=== PATIENT | female | born 1965 | race Caucasian/White ===

== ENCOUNTER 2016-07-30 19:52 | Inpatient (IN) | payer OTHER ==
[~2016-07-30] VITALS: Ht 160 cm; Wt 48.0 kg
[2016-07-30 19:59] VITALS: BP 133/63; PULSE 99; RESP 15; TEMP 97.8; O2SAT 98
--- NOTE | 2016-07-30 21:25 | PD ---
HPI Chief Complaint: Altered Mental Status Time Seen by Provider: 21:10 Travel History International Travel<30 days: No Contact w/Intl Traveler<30days: No Traveled to known affect area: No History of Present Illness HPI This is a 51-year-old female who presents with her daughter for evaluation of altered mental status, fall. According to the daughter the patient fell twice 6 days ago. The patient reportedly tripped and face planted on the sidewalk. Later on in the day she slipped and struck the back of her head against the ground. Since then according to her daughter she has been altered, hallucinating dogs and people and animals and bugs that are not there. She has been saying things that don't make sense according to the daughter. The daughter came down from [place] when she found out about her symptoms per the patient currently lives alone. The daughter notes that she is a heavy drinker although the patient seems to be minimizing this. She has no significant past medical history. She does endorse some pain in both feet from the fall as well as mild facial pain, abdominal pain. Denies any headache, neck pain or back pain, shortness of breath. She denies any known significant past medical history although she does not see a primary care physician on a regular basis. She has no psychiatric history. No other complaints. [facility] Past Medical History Autoimmune Disease: Yes (SKIN LUPUS) Integumentary: Yes (SKIN LUPUS) Tetanus Vaccination: Unknown ?: Not Past Surgical History Section: Yes Social History Alcohol Use: Yes (DAILY) Tobacco Use: Yes (1PPD) Substance Use: No Allergies-Medications (Allergen,Severity, Reaction): Coded Allergies: Penicillin (Verified Allergy, Unknown, 07/31/16) Reported Meds & Prescriptions Reported Meds & Active Scripts Active No Active Prescriptions or Reported Medications Review of Systems Except as stated in HPI: all other systems reviewed are Neg Physical Exam Narrative GENERAL: Well-developed well-nourished female in no acute distress SKIN: Warm and dry. Patient has ecchymosis along the left side of her face, as well as mild ecchymosis to the upper chest wall. HEAD: Skin as noted above Normocephalic. EYES: Pupils equal and round. Mild scleral icterus, there is some left conjunctival injection. No hyphema or hypopyon. Extraocular muscles are intact. No injection or drainage. ENT: No nasal bleeding or discharge. Mucous membranes pink and moist. NECK: Trachea midline. No JVD. CARDIOVASCULAR: Regular rate and rhythm. No murmur appreciated. RESPIRATORY: No accessory muscle use. Clear to auscultation. Breath sounds equal bilaterally. GASTROINTESTINAL: Abdomen soft, mild epigastric tenderness, hepatosplenomegaly. No guarding. MUSCULOSKELETAL: No obvious deformities. Tender to palpation on the anterior aspect of both feet. No apparent range of motion limitation NEUROLOGICAL: Awake and alert. No obvious cranial nerve deficits. Motor grossly within normal limits. Normal speech. Data Data Last Documented VS Vital Signs Date Time Temp Pulse Resp B/P Pulse Ox O2 Delivery O2 Flow Rate FiO2 07/30/16 19:59 97.8 99 15 133/63 98 Room Air Orders Electrocardiogram (07/30/16 21:17) Ammonia (07/30/16 21:17) Complete Blood Count With Diff (07/30/16 21:17) Creatine Kinase (Cpk) (07/30/16 21:17) Prothrombin Time / Inr (Pt) (07/30/16 21:17) Act Partial Throm Time (Ptt) (07/30/16 21:17) Thyroid Stimulating Hormone (07/30/16 21:17) Urinalysis - C+S If Indicated (07/30/16 21:17) Chest, Single Ap (07/30/16 21:17) Ct Brain W/O Iv Contrast(Rout) (07/30/16 21:17) Ecg Monitoring (07/30/16 21:17) Iv Access Insert/Monitor (07/30/16 21:17) Oximetry (07/30/16 21:17) Sodium Chloride 0.9% Flush (Ns Flush) (07/30/16 21:30) Drug Screen, Random Urine (07/30/16 21:17) Alcohol (Ethanol) (07/30/16 21:17) Ct Cerv Spine W/O Contrast (07/30/16 ) Hepatic Functional Panel (07/30/16 21:17) Ct Abd/Pel W Iv Contrast(Rout) (07/30/16 21:17) Ct Facial Bones W/O Iv Cont (07/30/16 ) Foot, Complete ([id number]) (07/30/16 ) Foot, Complete ([id number]) (2/16/17 ) Basic Metabolic Panel (Bmp) (07/30/16 21:46) CKMB (07/30/16 21:46) CKMB% (07/30/16 21:46) Lactulose Liq (Lactulose Liq) (07/30/16 23:00) Sodium Chlor 0.9% 1000 Ml Inj (Ns 1000 M (07/30/16 23:00) Potassium Chlor 20 Meq Premix (Kcl 20 Me (07/30/16 23:00) Potassium Chloride (Kcl) (07/30/16 23:00) Thiamine Inj (Thiamine Inj) (07/30/16 23:00) Iohexol 350 Inj (Omnipaque 350 Inj) (07/30/16 23:11) Osmolality, Urine (07/30/16 23:47) Admit Order (Ed Use Only) (07/31/16 00:43) Labs Laboratory Tests Test 07/30/16 07/30/16 21:45 21:46 Ammonia 80 MCMOL/L Prothrombin Time 15.8 SEC Prothromb Time International 1.4 RATIO Ratio Activated Partial 34.8 SEC Thromboplast Time Sodium Level 122 MEQ/L Potassium Level 2.8 MEQ/L Chloride Level 85 MEQ/L Carbon Dioxide Level 24.5 MEQ/L Anion Gap 13 MEQ/L Blood Urea Nitrogen 9 MG/DL Creatinine 0.59 MG/DL Estimat Glomerular Filtration 107 ML/MIN Rate Random Glucose 98 MG/DL Calcium Level 8.1 MG/DL Total Bilirubin 3.8 MG/DL Direct Bilirubin 2.6 MG/DL Indirect Bilirubin 1.2 MG/DL Aspartate Amino Transf 79 U/L (AST/SGOT) Alanine Aminotransferase 35 U/L (ALT/SGPT) Alkaline Phosphatase 108 U/L Total Creatine Kinase 241 U/L Creatine Kinase MB 5.4 NG/ML Creatine Kinase MB % 2.2 % Total Protein 7.4 GM/DL Albumin 2.4 GM/DL Thyroid Stimulating Hormone 1.750 uIU/ML 3rd Gen Ethyl Alcohol Level LESS THAN 3 MG/DL White Blood Count 10.8 TH/MM3 Red Blood Count 2.90 MIL/MM3 Hemoglobin 9.5 GM/DL Hematocrit 27.2 % Mean Corpuscular Volume 94.0 FL Mean Corpuscular Hemoglobin 32.9 PG Mean Corpuscular Hemoglobin 35.0 % Concent Red Cell Distribution Width 17.7 % Platelet Count 124 TH/MM3 Mean Platelet Volume 9.0 FL Neutrophils (%) (Auto) % Lymphocytes (%) (Auto) % Monocytes (%) (Auto) % Eosinophils (%) (Auto) % Basophils (%) (Auto) % Neutrophils # (Auto) TH/MM3 Lymphocytes # (Auto) TH/MM3 Monocytes # (Auto) TH/MM3 Eosinophils # (Auto) TH/MM3 Basophils # (Auto) TH/MM3 CBC Comment AUTO DIFF Differential Total Cells 100 Counted Neutrophils % (Manual) 76 % Lymphocytes % 3 % Monocytes % 20 % Eosinophils % 1 % Neutrophils # (Manual) 8.2 TH/MM3 Differential Comment FINAL DIFF MANUAL Atypical Lymphocytes % Toxic Granulation 2+ Platelet Estimate LOW Platelet Morphology Comment NORMAL Target Cells 2+ MDM Medical Decision Making Medical Screen Exam Complete: Yes Emergency Medical Condition: Yes Medical Record Reviewed: Yes Interpretation(s) Chest x-ray CONCLUSION: No definite acute abnormality is seen. Bilateral foot x-ray within normal limits CBC hemoglobin 9.5 CMP sodium 122, potassium 2.8, total bilirubin 3.8, direct bilirubin 2.6, indirect bilirubin 1.2, AST 79 Total CK 241 Ammonia 80 Differential Diagnosis Facial fracture, contusion, concussion, intracranial hemorrhage, hepatic encephalitis, schizophrenia Narrative Course 50-year-old female presents after 2 mechanical falls reportedly 6 days ago. She has ecchymosis to the face, tenderness to palpation in the face as well as some epigastric abdominal tenderness, upper chest wall tenderness, hepatosplenomegaly. She is a very heavy drinker according to the daughter and she is very concerned with her current behavior and the fact that she lives alone. She has no known history of hepatitis. Plan is for CT imaging the brain , facial bones, cervical spine and abdomen and pelvis. Chest x-ray, bilateral foot x-rays been ordered. Plan is for basic lab work, EKG. 2300: At the end my shift the patient was signed out to Dr. Lundberg, likely admission given her initial lab work revealing hyponatremia, elevated ammonia and hypokalemia. Scripts No Active Prescriptions or Reported Meds Hernán Fernando Jul 30, 2016 21:25
[2016-07-30] MEDS ORDERED: SODIUM CHLORIDE 0.9% FLUSH 5 ML FLUSH IVF PRN (21:30)
--- NOTE | 2016-07-30 21:51 | RADRPT ---
EXAM DATE/TIME: 07/30/2016 21:33 [facility] COMPARISON: No previous studies available for comparison. INDICATIONS : Generalized Left Foot pain and swelling after fall, Dorsal surface most painful. MEDICAL HISTORY : None. SURGICAL HISTORY : None. ENCOUNTER: Initial ACUITY: 1 week PAIN SCORE: 3/10 LOCATION: Left Foot. FINDINGS: Three view examination of the left foot demonstrates no soft tissue swelling, dislocation, or fractur e. The tarsal bones appear intact. The interphalangeal and metatarsophalangeal joints are intact. The calcaneus is intact. There is mild hypertrophic change at the Achilles attachment site. Bony mi neralization is normal. CONCLUSION: No acute disease. Santi Abreu MD on July 30, 2016 at 21:48 Board Certified Radiologist. This report was verified electronically.
--- NOTE | 2016-07-30 21:51 | RADRPT ---
EXAM DATE/TIME: 07/30/2016 21:31 [facility] COMPARISON: No previous studies available for comparison. INDICATIONS : Generalized Right Foot pain and swelling after fall, Dorsal surface most painful. MEDICAL HISTORY : None. SURGICAL HISTORY : None. ENCOUNTER: Initial ACUITY: 1 week PAIN SCORE: 3/10 LOCATION: Right Foot. FINDINGS: Three view examination of the right foot demonstrates no soft tissue swelling, dislocation, or fractu re. The tarsal bones appear intact. The interphalangeal and metatarsophalangeal joints are intact. The calcaneus is intact. There is mild hypertrophic change at the Achilles attachment site. Bony m ineralization is normal. CONCLUSION: No acute disease. Santi Abreu MD on July 30, 2016 at 21:49 Board Certified Radiologist. This report was verified electronically.
--- NOTE | 2016-07-30 21:56 | RADRPT ---
EXAM DATE/TIME: 07/30/2016 21:29 [facility] COMPARISON: No previous studies available for comparison. INDICATIONS : Chest pain after fall, upper chest wall most painful. MEDICAL HISTORY : None. SURGICAL HISTORY : None. ENCOUNTER: Initial ACUITY: 1 week PAIN SCORE: 3/10 LOCATION: Bilateral chest FINDINGS: The heart size is normal. The lungs are grossly clear. There is increased density seen over the bases bilaterally likely related to the overlying breast soft tissues. Costophrenic angles are clear. The patient does have a dextrocurvature of the thoracic spine and a compensatory levocurv ature of the thoracolumbar region. The bony structures appear otherwise intact. CONCLUSION: No definite acute abnormality is seen. Santi Abreu MD on July 30, 2016 at 21:46 Board Certified Radiologist. This report was verified electronically.
[2016-07-30 21:59] LABS: HEMATOCRIT 27.2 % (35.0-46.0); MEAN CORPUSCULAR HEMOGLOBIN 32.9 PG (27.0-34.0); PLATELET COUNT 124 TH/MM3 (150-450); RED CELL DISTRIBUTION WIDTH 17.7 % (11.6-17.2); WHITE BLOOD COUNT 10.8 TH/MM3 (4.0-11.0)
[2016-07-30 22:02] LABS: HEMO FLAGS AUTO DIFF
[2016-07-30 22:10] LABS: APTT (PATIENT) 34.8 SEC (24.3-30.1); INTERNATIONAL NORMALIZED RATIO 1.4 RATIO; PROTHROMBIN TIME - PATIENT 15.8 SEC (9.8-11.6)
[2016-07-30 22:23] LABS: ANION GAP 13 MEQ/L (5-15); AST (GOT) 79 U/L (15-37); BICARBONATE 24.5 MEQ/L (21.0-32.0); BLOOD UREA NITROGEN 9 MG/DL (7-18); CHLORIDE 85 MEQ/L (98-107); GLOMERULAR FILTRATION RATE 107 ML/MIN (>89)
[2016-07-30 22:33] LABS: POTASSIUM 2.8 MEQ/L (3.5-5.1); SODIUM (NA) 122 MEQ/L (136-145)
[2016-07-30 22:34] LABS: ALKALINE PHOSPHATASE 108 U/L (45-117); ALT (GPT) 35 U/L (10-53); CREATINE KINASE 241 U/L (26-192); INDIRECT BILIRUBIN 1.2 MG/DL (0.0-0.8); TOTAL BILIRUBIN ADULT 3.8 MG/DL (0.2-1.0)
--- NOTE | 2016-07-30 22:38 | PD ---
Physical Exam Narrative I, Dr. Lundberg, have reviewed the advance practice practitioner's documentation and am in agreement, met with the patient face to face, made the diagnosis, and the medical decision making was done by me. *My assessment and Findings: Alcohol abuse vs. dehydration vs. electrolyte abnormality vs. delirium vs. hepatic encephalopathy. 51yo F with alcohol abuse brought in by daughter today for altered mental status. Pt has frequent falls and fell 1 week ago. She does drink daily but is not interested in detox for alcohol at this time. Pt is having visual hallucinations and sees her dog which is not there. Daughter states she talks to herself. Denies any fever, chest pain, sob, n/v, abdominal pain, focal weakness or numbness. Pt does have old ecchymoses on left face. No focal neurologic deficit on exam. Daughter visits and is from another state so she does not see her often. Labs reviewed, H/H low at 9.5/27.2. Hyponatremia at 122. Hypokalemia at 2.8, pt given 20mEq KCl IV and 40mEq KCl PO. Ammonia elevated at 80, given lactulose. Pt may be altered secondary to hepatic encephalopathy. Bilirubin and AST also elevated. Blood alcohol negative. CXR showed no definite abnormality. Xray bilateral foot negative. CTa/p showed no evidence of acute abdominal or pelvic process. CT brain showed no acute intracranial pathology. CT cspine showed no evidence of acute fracture. CT MF showed no acute fracture. Pt is AAOx3 but with visual hallucination and elevated ammonia. Will admit for hypokalemia, hyponatremia and hepatic encephalopathy. Discussed with Dr. Mathews and accepted for admission. Data Data Last Documented VS Vital Signs Date Time Temp Pulse Resp B/P Pulse Ox O2 Delivery O2 Flow Rate FiO2 07/30/16 19:59 97.8 99 15 133/63 98 Room Air Orders Electrocardiogram (07/30/16 21:17) Ammonia (07/30/16 21:17) Complete Blood Count With Diff (07/30/16 21:17) Creatine Kinase (Cpk) (07/30/16 21:17) Prothrombin Time / Inr (Pt) (07/30/16 21:17) Act Partial Throm Time (Ptt) (07/30/16 21:17) Thyroid Stimulating Hormone (07/30/16 21:17) Urinalysis - C+S If Indicated (07/30/16 21:17) Chest, Single Ap (07/30/16 21:17) Ct Brain W/O Iv Contrast(Rout) (07/30/16 21:17) Ecg Monitoring (07/30/16 21:17) Iv Access Insert/Monitor (07/30/16 21:17) Oximetry (07/30/16 21:17) Sodium Chloride 0.9% Flush (Ns Flush) (07/30/16 21:30) Drug Screen, Random Urine (07/30/16 21:17) Alcohol (Ethanol) (07/30/16 21:17) Ct Cerv Spine W/O Contrast (07/30/16 ) Hepatic Functional Panel (07/30/16 21:17) Ct Abd/Pel W Iv Contrast(Rout) (07/30/16 21:17) Ct Facial Bones W/O Iv Cont (07/30/16 ) Foot, Complete ([id number]) (07/30/16 ) Foot, Complete ([id number]) (07/30/16 ) Basic Metabolic Panel (Bmp) (07/30/16 21:46) CKMB (07/30/16 21:46) CKMB% (07/30/16 21:46) Lactulose Liq (Lactulose Liq) (07/30/16 23:00) Sodium Chlor 0.9% 1000 Ml Inj (Ns 1000 M (07/30/16 23:00) Potassium Chlor 20 Meq Premix (Kcl 20 Me (07/30/16 23:00) Potassium Chloride (Kcl) (07/30/16 23:00) Thiamine Inj (Thiamine Inj) (07/30/16 23:00) Iohexol 350 Inj (Omnipaque 350 Inj) (07/30/16 23:11) Osmolality, Urine (07/30/16 23:47) Admit Order (Ed Use Only) (07/31/16 00:43) Labs Laboratory Tests Test 07/30/16 07/30/16 21:45 21:46 Ammonia 80 MCMOL/L White Blood Count 10.8 TH/MM3 Red Blood Count 2.90 MIL/MM3 Hemoglobin 9.5 GM/DL Hematocrit 27.2 % Mean Corpuscular Volume 94.0 FL Mean Corpuscular Hemoglobin 32.9 PG Mean Corpuscular Hemoglobin 35.0 % Concent Red Cell Distribution Width 17.7 % Platelet Count 124 TH/MM3 Mean Platelet Volume 9.0 FL Neutrophils (%) (Auto) % Lymphocytes (%) (Auto) % Monocytes (%) (Auto) % Eosinophils (%) (Auto) % Basophils (%) (Auto) % Neutrophils # (Auto) TH/MM3 Lymphocytes # (Auto) TH/MM3 Monocytes # (Auto) TH/MM3 Eosinophils # (Auto) TH/MM3 Basophils # (Auto) TH/MM3 CBC Comment AUTO DIFF Differential Total Cells 100 Counted Neutrophils % (Manual) 76 % Lymphocytes % 3 % Monocytes % 20 % Eosinophils % 1 % Neutrophils # (Manual) 8.2 TH/MM3 Differential Comment FINAL DIFF MANUAL Atypical Lymphocytes % Toxic Granulation 2+ Platelet Estimate LOW Platelet Morphology Comment NORMAL Target Cells 2+ Prothrombin Time 15.8 SEC Prothromb Time International 1.4 RATIO Ratio Activated Partial 34.8 SEC Thromboplast Time Sodium Level 122 MEQ/L Potassium Level 2.8 MEQ/L Chloride Level 85 MEQ/L Carbon Dioxide Level 24.5 MEQ/L Anion Gap 13 MEQ/L Blood Urea Nitrogen 9 MG/DL Creatinine 0.59 MG/DL Estimat Glomerular Filtration 107 ML/MIN Rate Random Glucose 98 MG/DL Calcium Level 8.1 MG/DL Total Bilirubin 3.8 MG/DL Direct Bilirubin 2.6 MG/DL Indirect Bilirubin 1.2 MG/DL Aspartate Amino Transf 79 U/L (AST/SGOT) Alanine Aminotransferase 35 U/L (ALT/SGPT) Alkaline Phosphatase 108 U/L Total Creatine Kinase 241 U/L Creatine Kinase MB 5.4 NG/ML Creatine Kinase MB % 2.2 % Total Protein 7.4 GM/DL Albumin 2.4 GM/DL Thyroid Stimulating Hormone 1.750 uIU/ML 3rd Gen Ethyl Alcohol Level LESS THAN 3 MG/DL MDM Supervised Visit with KIMO: Yes Diagnosis Primary Impression: Hepatic encephalopathy Additional Impressions: Hypokalemia Hyponatremia Admitting Information Admitting Physician Requests: Admit Scripts No Active Prescriptions or Reported Meds Rosey Lundberg DO Jul 30, 2016 22:37
[2016-07-30 22:59] LABS: CKMB 5.4 NG/ML (0.5-3.6)
[2016-07-30] MEDS ORDERED: LACTULOSE SYRUP 20 GM/30 ML CUP PO ONE (23:00)
[2016-07-30] MEDS ORDERED: THIAMINE INJ 100 MG in SODIUM CHLORIDE 0.9% INJ 100 ML IV ONE (23:00)
[2016-07-30] MEDS ORDERED: POTASSIUM CHLORIDE 20 MEQ CONTROLLED RELEASE TAB PO ONE (23:00)
[2016-07-30] MEDS ORDERED: SODIUM CHLOR 0.9% 1000 ML INJ 1,000 ML IV ONE (23:00)
[2016-07-30] MEDS ORDERED: POTASSIUM CHLOR 20 MEQ PREMIX 100 ML IV ONE (23:00)
[2016-07-30 23:05] LABS: EOSINOPHILS 1 % (0-4); NEUTROPHIL # MANUAL DIFF 8.2 TH/MM3 (1.8-7.7); POLYS (SEG NEUTROPHILS) 76 % (16-70); WBC DIFF SAMPLE 100
[2016-07-30 23:06] LABS: PLATELET ESTIMATE SMEAR LOW (NORMAL); PLATELET MORPHOLOGY NORMAL (NORMAL); SCAN/DIFF FINAL DIFF MANUAL; TARGET CELLS 2+ (NORMAL); TOXIC GRANULATION 2+ (NORMAL)
[2016-07-30] MEDS ORDERED: IOHEXOL 350 MG/ML 10 ML VIAL (for RAD DIAG) IV ONE (23:11)
--- NOTE | 2016-07-30 23:13 | RADRPT ---
EXAM DATE/TIME: 07/30/2016 22:58 [facility] COMPARISON: No previous studies available for comparison. INDICATIONS : Altered mental status. Fall four days ago. RADIATION DOSE: 56.35 CTDIvol (mGy) MEDICAL HISTORY : None SURGICAL HISTORY : None. ENCOUNTER: Initial ACUITY: 4 - 6 days PAIN SCALE: 0/10 LOCATION: cranial TECHNIQUE: Multiple contiguous axial images were obtained of the head. Using automated exposure control and adj ustment of the mA and/or kV according to patient size, radiation dose was kept as low as reasonably a chievable to obtain optimal diagnostic quality images. FINDINGS: CEREBRUM: The ventricles are normal for age. No evidence of midline shift, mass lesion, hemorrhage or acute in farction. No extra-axial fluid collections are seen. POSTERIOR FOSSA: The cerebellum and brainstem are intact. The 4th ventricle is midline. The cerebellopontine angle i s unremarkable. EXTRACRANIAL: The visualized portion of the orbits is intact. SKULL: The calvaria is intact. No evidence of skull fracture. CONCLUSION: 1. No evidence of acute intracranial pathology. No masses are identified. Zheng Bourgeois MD on July 30, 2016 at 23:10 Board Certified Radiologist. This report was verified electronically.
--- NOTE | 2016-07-30 23:22 | RADRPT ---
EXAM DATE/TIME: 07/30/2016 23:00 [facility] COMPARISON: No previous studies available for comparison. INDICATIONS : Trauma, fall four days ago. RADIATION DOSE: 24.66 CTDIvol (mGy) MEDICAL HISTORY : None SURGICAL HISTORY : None. ENCOUNTER: Initial ACUITY: 4 - 6 days PAIN SCALE: 0/10 LOCATION: neck TECHNIQUE: Volumetric scanning of the cervical spine was performed. Multiplanar reconstructions in the sagittal, coronal and oblique axial planes were performed. Using automated exposure control and adjustment o f the mA and/or kV according to patient size, radiation dose was kept as low as reasonably achievable to obtain optimal diagnostic quality images. FINDINGS: CT of the cervical spine was performed in sagittal and axial planes. There is straightening of the no rmal cervical lordosis which may be secondary positioning or spasm. No focal areas of marrow replacem ent are identified. The craniocervical junction appears normal. Axial images were performed from C2-C 3 through C7-T1. There is multilevel disc space narrowing and marginal osteophyte formation maximal a t C5-C6. C2-C3: No significant abnormalities identified. C3-C4: There is uncovertebral joint hypertrophy on left side. There is no evidence of disc protrusion or spi nal canal stenosis. The neural foramina are clear bilaterally. C4-C5: There is uncovertebral joint hypertrophy bilaterally. There is no significant spinal canal stenosis. The neural foramina are clear bilaterally. C5-C6: There is osteophytic ridging along the posterior aspect of vertebral body. There is uncovertebral kit nt hypertrophy bilaterally. There is mild neural foraminal narrowing bilaterally. There is no signifi cant spinal canal stenosis. C6-C7: There is osteophytic ridging along the posterior aspect of vertebral body. There is uncovertebral kit nt hypertrophy on left side. The neural foramina are clear bilaterally. C7-T1: There is no evidence of disc protrusion or spinal canal stenosis. There is mild facet arthritis bilat erally. CONCLUSION: Reversal of the normal cervical lordosis. There is no evidence of acute fracture. Moderate degenerat mel as above Zheng Bourgeois MD on July 30, 2016 at 23:17 Board Certified Radiologist. This report was verified electronically.
--- NOTE | 2016-07-30 23:25 | RADRPT ---
EXAM DATE/TIME: 07/30/2016 23:00 [facility] COMPARISON: No previous studies available for comparison. INDICATIONS : Trauma fall four days ago. RADIATION DOSE: 21.96 CTDIvol (mGy) MEDICAL HISTORY : None SURGICAL HISTORY : None. ENCOUNTER: Initial ACUITY: 4 - 6 days PAIN SCORE: 0/10 LOCATION: facial TECHNIQUE: Volumetric scanning of the facial bones was performed. Using automated exposure control and adjustme nt of the mA and/or kV according to patient size, radiation dose was kept as low as reasonably achiev able to obtain optimal diagnostic quality images. FINDINGS: ORBITS: The orbital and infraorbital osseous structures are intact. The retroconal structures have a normal configuration. No radiopaque foreign bodies are seen. NASAL BONE: The nasal bone and maxillary spine are intact ZYGOMATIC ARCHES: Symmetric without evidence of fracture. SINUSES: The maxillary, ethmoid and frontal sinuses are intact. No air-fluid levels seen. NASAL CAVITY: The nasal septum is intact and midline. The lacrimal ducts are intact. SOFT TISSUES: No radiopaque foreign bodies seen. No soft-tissue swelling is seen. INTRACRANIAL: No intracranial air seen. There is nonunion of the posterior arch of C1 which can be seen as a normal variation. CRIBIFORM PLATE: Grossly intact. CONCLUSION: 1. There is no evidence of acute fracture. Zheng Bourgeois MD on July 30, 2016 at 23:21 Board Certified Radiologist. This report was verified electronically.
--- NOTE | 2016-07-30 23:29 | RADRPT ---
EXAM DATE/TIME: 07/30/2016 23:04 [facility] COMPARISON: No previous studies available for comparison. INDICATIONS : Trauma, fall four days ago. IV CONTRAST: 100 cc Omnipaque 350 (iohexol) IV ORAL CONTRAST: No oral contrast ingested. RADIATION DOSE: 9.96 CTDIvol (mGy) MEDICAL HISTORY : None SURGICAL HISTORY : None. ENCOUNTER: Initial ACUITY: 4 - 6 days PAIN SCALE: 0/10 LOCATION: abdomen TECHNIQUE: Volumetric scanning of the abdomen and pelvis was performed. Using automated exposure control and ad justment of the mA and/or kV according to patient size, radiation dose was kept as low as reasonably achievable to obtain optimal diagnostic quality images. FINDINGS: There is right basilar atelectasis versus pneumoniaNo pleural effusions are identified. Moderate scol iotic deformity is present to the left with a rotatory component with the apex at L2-L3. There is a n odular contour to the liver which may reflect cirrhosis. There is a small amount of fluid over the do me of the liver. The spleen is normal in size and free of focal defects. There are multiple stones wi thin the gallbladder without wall thickening or pericholecystic fluid the largest measuring 1-2 mm. A small amount of pericholecystic fluid is present which is nonspecific in the face of ascites. The pa ncreas demonstrates no evidence of mass and there is no dilatation of the pancreatic duct. The adrena l glands and kidneys appear normal bilaterally. No hydronephrosis or mass lesions are identified. Free fluid is present within the pelvis. The bladder appears normal. No wall thickening or intralumin al masses are identified. No abnormally enlarged lymph nodes are identified. CONCLUSION: 1. No evidence of acute abdominal or pelvic process. No masses are identified. 2. Cirrhosis with mild ascites 3. Cholelithiasis 4. Right basilar atelectasis versus pneumonia Zheng Bourgeois MD on July 30, 2016 at 23:24 Board Certified Radiologist. This report was verified electronically.
[2016-07-31] VITALS (8 sets, daily range): BP systolic 122–132; BP diastolic 60–70; PULSE 85–96; RESP 18–28; TEMP 98.1–99; O2SAT 94–96
[2016-07-31] MEDS ORDERED: LORazepam 2 MG/ML VIAL IV PUSH PRN ×4 (01:00)
[2016-07-31] MEDS ORDERED: FLUMAZENIL 0.5 MG/5 ML VIAL IV PUSH PRN (01:00)
[2016-07-31] MEDS ORDERED: BISACODYL 10 MG SUPP PR PRN (01:00)
[2016-07-31] MEDS ORDERED: SODIUM CHLORIDE 0.9% FLUSH 5 ML FLUSH FLUSH PRN (01:00)
[2016-07-31] MEDS ORDERED: LORazepam 2 MG TAB PO PRN (01:00)
[2016-07-31] MEDS ORDERED: HALOPERIDOL LACTATE 5 MG/ML AMP IM PRN (01:00)
[2016-07-31] MEDS ORDERED: ONDANSETRON HCL 4 MG/2 ML VIAL IVP PRN (01:00)
[2016-07-31] MEDS ORDERED: LORazepam 1 MG TAB PO PRN (01:00)
[2016-07-31] MEDS ORDERED: ACETAMINOPHEN 325 MG TAB PO PRN (01:00)
[2016-07-31] MEDS ORDERED: RESP: ALBUTEROL 2.5 MG/IPRATROPIUM 0.5 MG NEB (PRN) NEB ×2 (01:00→18:30)
[2016-07-31] MEDS: MULTIVITAMIN INJ 10 ML, FOLIC ACID INJ 1 MG in SODIUM CHLORID 0.9% 500 ML INJ 500 ML IV SCH (03:15)
--- NOTE | 2016-07-31 03:58 | HHI.HP ---
[facility] [place] [facility] Unknown Admission Diagnosis Hepatic encephalopathy, hypokalemia, hyponatremia Diagnoses: (1) Hepatic encephalopathy Diagnosis: Principal (2) Hypokalemia Diagnosis: Principal (3) Hyponatremia Diagnosis: Principal (4) Thrombocytopenia Diagnosis: Principal (5) Neutrophilia Diagnosis: Principal (6) Alcohol abuse Diagnosis: Principal Travel History International Travel<30 Days: No Contact w/Intl Traveler <30 Da: No Traveled to Known Affected Are: No History of Present Illness This is a 51-year-old female with a PMH of Alcohol Abuse and Tobacco Abuse who is brought to the ER by Daughter secondary to AMS and recurrent falls. Daughter lives up in [place], however drove down to see patient and noted her to be significantly confused w/ multiple falls. S/p fall 1wk ago w/ head/facial trauma, did not seek medical attention at that time. Pt also w/ auditory/visual hallucinations. Pt w/ vague complaints of abdominal pain and bilateral foot pain, but denies fever, chills, SOB, nausea, vomiting or diarrhea. On arrival, BP 133/63, HR 99, O2 sat 98% on RA, Afebrile. WBC 10.8, neutrophils 76, +toxic granulation. Platelets 124, no previous labs for comparison. Hgb 9.5. Na 122. K+ 2.8. Ammonia 80. INR 1.4. Alcohol negative. CXR with no acute findings. CT Head with no acute pathology. CT C- spine no acute fracture. Bilateral Foot X-ray negative. CT Maxillofacial no acute fracture. Review of Systems Except as stated in HPI: all other systems reviewed are Neg ROS: 14 point review of systems otherwise negative. Past Family Social History Past Medical History PMH: Alcohol Abuse and Tobacco Abuse Past Surgical History PAST SURGICAL HISTORY: Allergies: Coded Allergies: Penicillin (Verified Allergy, Unknown, 07/31/16) Family History PAST FAMILY HISTORY: Reviewed. No h/o DM or CAD Social History PAST SOCIAL HISTORY: Drinks daily. Smokes 1ppd. Negative for drugs. Physical Exam Vital Signs Vital Signs Date Time Temp Pulse Resp B/P Pulse Ox O2 Delivery O2 Flow Rate FiO2 07/31/16 01:00 96 28 124/60 96 Room Air 07/30/16 19:59 97.8 99 15 133/63 98 Room Air Physical Exam PE: GENERAL: Middle-aged white female in no acute distress. HEENT: PERRLA, EOMI. No scleral icterus or conjunctival pallor. No lid lag or facial droop. Left facial ecchymosis CARDIOVASCULAR: Regular rate and rhythm. No obvious murmurs to auscultation. No chest tenderness to palpation. RESPIRATORY: No obvious rhonchi or wheezing. Clear to auscultation. Breath sounds equal bilaterally. GASTROINTESTINAL: Abdomen soft, non-tender, nondistended. BS normal. MUSCULOSKELETAL: Extremities without clubbing, cyanosis, or edema. No obvious deformities. NEUROLOGICAL: Awake, alert and oriented to person, place and time, however occasional auditory/visual hallucinations. No focal neurologic deficits. Moving both upper and lower extremities spontaneously. Laboratory Laboratory Tests Test 07/30/16 07/30/16 21:45 21:46 Ammonia 80 White Blood Count 10.8 Red Blood Count 2.90 Hemoglobin 9.5 Hematocrit 27.2 Mean Corpuscular Volume 94.0 Mean Corpuscular Hemoglobin 32.9 Mean Corpuscular Hemoglobin 35.0 Concent Red Cell Distribution Width 17.7 Platelet Count 124 Mean Platelet Volume 9.0 Neutrophils (%) (Auto) Lymphocytes (%) (Auto) Monocytes (%) (Auto) Eosinophils (%) (Auto) Basophils (%) (Auto) Neutrophils # (Auto) Lymphocytes # (Auto) Monocytes # (Auto) Eosinophils # (Auto) Basophils # (Auto) CBC Comment AUTO DIFF Differential Total Cells 100 Counted Neutrophils % (Manual) 76 Lymphocytes % 3 Monocytes % 20 Eosinophils % 1 Neutrophils # (Manual) 8.2 Differential Comment FINAL DIFF MANUAL Atypical Lymphocytes Toxic Granulation 2+ Platelet Estimate LOW Platelet Morphology Comment NORMAL Target Cells 2+ Prothrombin Time 15.8 Prothromb Time International 1.4 Ratio Activated Partial 34.8 Thromboplast Time Sodium Level 122 Potassium Level 2.8 Chloride Level 85 Carbon Dioxide Level 24.5 Anion Gap 13 Blood Urea Nitrogen 9 Creatinine 0.59 Estimat Glomerular Filtration 107 Rate Random Glucose 98 Calcium Level 8.1 Total Bilirubin 3.8 Direct Bilirubin 2.6 Indirect Bilirubin 1.2 Aspartate Amino Transf 79 (AST/SGOT) Alanine Aminotransferase 35 (ALT/SGPT) Alkaline Phosphatase 108 Total Creatine Kinase 241 Creatine Kinase MB 5.4 Creatine Kinase MB % 2.2 Total Protein 7.4 Albumin 2.4 Thyroid Stimulating Hormone 1.750 3rd Gen Ethyl Alcohol Level LESS THAN 3 Result Diagram: 07/30/16214507/30/162145 Assessment and Plan Problem List: (1) Hepatic encephalopathy ICD Code: K72.90 Status: Acute (2) Alcohol abuse ICD Code: F10.10 Status: Acute (3) Hyponatremia ICD Code: E87.1 Status: Acute (4) Hypokalemia ICD Code: E87.6 Status: Acute (5) Thrombocytopenia ICD Code: D69.6 Status: Acute (6) Neutrophilia ICD Code: D72.9 Status: Acute Assessment and Plan A/P: 1. Hepatic Encephalopathy: h/o Alcohol Abuse, now w/ recurrent falls and increased confusion. CT Head/C-Spine negative for acute findings, CT Maxillofacial negative, images reviewed by me. Ammonia 80. S/p Lactulose in ER , will continue w/ Lactulose. CT Abd/Pelvis w/ cirrhosis, mild ascites. 2. Alcohol Abuse: Drinks daily, however Alcohol negative. Seizure Precautions , CIWA Protocol, MVT/Thiamine/Folate replacement. 3. Hyponatremia: Na 122. Likely secondary to dehydration and Alcohol Abuse, IVF, repeat labs in am. 4. Hypokalemia: K+ 2.8, s/p replacement in ER, recheck and replace as needed. 5. Thrombocytopenia: Platelets 124, no previous labs for comparison, likely secondary to long-standing alcohol abuse. No active bleeding, repeat labs in am. Monitor closely in light of coagulopathy. 6. Neutrophilia: WBC 10.8, however neutrophils 76 w/ toxic granulation concerning for underlying infection. CXR negative for acute findings, images reviewed by me, however occasional wet cough in ER. U/a pending. +Cirrhosis w / mild ascites. Will start IV Levaquin for possible UTI, SBP or early PNA. 7. DVT Prophylaxis: Pharmacologic contraindication secondary to thrombocytopenia and elevated INR of 1.4 8. Social work for d/c planning as needed. 9. Case discussed at length w/ ER physician. Physician Certification 2 Midnight Certification Type: Admission for Inpatient Services Order for Inpatient Services The services are ordered in accordance with Medicare regulations or non- Medicare payer requirements, as applicable. In the case of services not specified as inpatient-only, they are appropriately provided as inpatient services in accordance with the 2-midnight benchmark. Estimated LOS (days): 2 days is the estimated time the patient will need to remain in the hospital, assuming treatment plan goals are met and no additional complications. Post-Hospital Plan: Not yet determined Ragini Mathews MD Jul 31, 2016 03:58
[2016-07-31] MEDS: LEVOFLOXACIN 750 MG PREMIX INJ 150 ML IV SCH (05:01)
[2016-07-31 05:21] LABS: AUTOMATED NEUTROPHIL # 6.6 TH/MM3 (1.8-7.7); BASOPHIL % 0.3 % (0.0-2.0); EOSINOPHIL % 0.2 % (0.0-4.0); HEMATOCRIT 27.3 % (35.0-46.0); LYMPH % 8.8 % (9.0-44.0); LYMPHOCYTE # 1.1 TH/MM3 (1.0-4.8); MEAN CELL VOLUME 95.2 FL (80.0-100.0); MEAN CORPUSCULAR HEMOGLOBIN 32.3 PG (27.0-34.0); MEAN CORPUSCULAR HGB CONC 33.9 % (32.0-36.0); NEUT % 55.7 % (16.0-70.0); PLATELET COUNT 125 TH/MM3 (150-450); RED BLOOD COUNT 2.87 MIL/MM3 (4.00-5.30); RED CELL DISTRIBUTION WIDTH 17.5 % (11.6-17.2); WHITE BLOOD COUNT 11.9 TH/MM3 (4.0-11.0)
[2016-07-31 05:32] LABS: ALKALINE PHOSPHATASE 105 U/L (45-117); ALT (GPT) 34 U/L (10-53); ANION GAP 12 MEQ/L (5-15); AST (GOT) 80 U/L (15-37); BICARBONATE 23.9 MEQ/L (21.0-32.0); BLOOD UREA NITROGEN 7 MG/DL (7-18); CHLORIDE 90 MEQ/L (98-107); GLOMERULAR FILTRATION RATE 118 ML/MIN (>89); SODIUM (NA) 126 MEQ/L (136-145); TOTAL BILIRUBIN ADULT 4.3 MG/DL (0.2-1.0)
[2016-07-31 05:37] LABS: HEMO FLAGS AUTO DIFF
[2016-07-31 05:39] LABS: POTASSIUM 2.8 MEQ/L (3.5-5.1)
[2016-07-31 05:51] LABS: AMPHETAMINE, URINE NEG (NEG); BARBITURATES, URINE NEG (NEG); COCAINE, URINE NEG (NEG)
[2016-07-31 05:56] LABS: BACTERIA, URINE MANY /hpf; BLOOD, URINE NEG (NEG); GLUCOSE,URINE NEG (NEG); KETONE, URINE NEG (NEG); MUCUS URINE FEW /lpf (OCC); NITRITE,URINE NEG (NEG); PH, URINE 6.5 (5.0-8.5); SQUAMOUS EPITHELIAL CELL URINE 1 /hpf (0-5); URINE COLOR YELLOW (YELLW/STRAW)
[2016-07-31 05:59] LABS: COMMENT (UR) CATH-CULTURE IND; CULTURE IF INDICATED CATH CULTURE IND
[2016-07-31 07:32] LABS: BANDS 3 % (0-6); METAMYELOCYTES 1 % (0-1); NEUTROPHIL # MANUAL DIFF 8.3 TH/MM3 (1.8-7.7); PLASMA CELLS 1 % (0-0); POLYS (SEG NEUTROPHILS) 66 % (16-70); WBC DIFF SAMPLE 100
[2016-07-31 07:33] LABS: PLATELET ESTIMATE SMEAR LOW (NORMAL); PLATELET MORPHOLOGY NORMAL (NORMAL); SCAN/DIFF FINAL DIFF MANUAL; TARGET CELLS 1+ (NORMAL); TOXIC GRANULATION 2+ (NORMAL)
[2016-07-31] MEDS: LACTULOSE SYRUP 20 GM/30 ML CUP PO SCH ×4 (09:00→20:38)
[2016-07-31] MEDS: THIAMINE INJ 100 MG in SODIUM CHLORIDE 0.9% INJ 100 ML IV SCH (09:24)
[2016-07-31] MEDS: SODIUM CHLORIDE 0.9% FLUSH 5 ML FLUSH FLUSH SCH ×2 (11:43→20:39)
--- NOTE | 2016-07-31 16:46 | EKG ---
Date Performed: 07/30/2016 Time Performed: 22:35:22 PTAGE: 51 years EKG: Sinus rhythm POSSIBLE LEFT ATRIAL ENLARGEMENT MODERATE T-WAVE ABNORMALITY, CONSIDER ANTERIOR ISCHEMIA ABNORMAL EC G NO PREVIOUS TRACING DOCTOR: Tariq Rico Interpretating Date/Time 07/31/2016 16:42:34
[2016-07-31] MEDS: POTASSIUM CHLOR 20 MEQ PREMIX 100 ML IV SCH ×2 (18:30→20:41)
[2016-07-31] MEDS ORDERED: LEVOFLOXACIN 750 MG PREMIX INJ 150 ML IV SCH (18:30)
[2016-07-31] MEDS: SODIUM CHLOR 0.9% 1000 ML INJ 1,000 ML IV SCH (18:30)
[2016-07-31] MEDS ORDERED: methylPREDNISolone SOD SUCC 125 MG/2 ML VIAL IV PUSH ONE (19:00)
--- NOTE | 2016-07-31 19:00 | HHI.PR ---
Addendum to Inpatient Note Addendum Reason: Additional Documentation Additional Information Patient is awake and alert x2. Denies cp/sob. noted to be coughing. On exam there is ascites on abdominal exam, patient has big bruise over left eye and face. No tremors. On lung exam there in difuse bilateral wheezing. 1. Encephalopathy - likely due to metabolic and toxic encephalopathy juwan to hyponatremia and hyperammonemia 2. Recurrent falls - likely due to encephalopathy. PT evaluation. 3. Suspect COPD exacerbation: Patient is a smoker. Will start patient on duonebs and bronchodilators, as well as IV Solumedrol and IV levaquin. 4. Hyponatremia - hypovolemic, will start on NS and monitor BMP 5. Hyperammonemia - continue lactulose and monitor ammonia level. Due to liver disease. 6. hypokalemia - Will replace with IV KCL and oral potassium. Monitor pot[place] and replace as needed. 7. Liver cirrhosis - patient has ascites and signs of cirrhosis on CT scan - Consult GI. 8. etoh abuse - alcohol level normal, no signs of withdrawal Had long discussion with daughter and current mom condition. Daughter states that she has had a conciliation court judge sign a [place] act in [facility]. At this point I think patient is unable to make medical decisions on her behalf. Nasir Willingham MD Jul 31, 2016 18:59
[2016-07-31] MEDS: RESP: ALBUTEROL 2.5 MG/IPRATROPIUM 0.5 MG NEB (SCH) NEB (20:00)
[2016-08-01] VITALS: BP 114/60; PULSE 89; RESP 17; TEMP 98.7; O2SAT 95
[2016-08-01] MEDS: LEVOFLOXACIN 750 MG PREMIX INJ 150 ML IV SCH ×2 (00:35→23:33)
[2016-08-01] MEDS: MULTIVITAMIN INJ 10 ML, FOLIC ACID INJ 1 MG in SODIUM CHLORID 0.9% 500 ML INJ 500 ML IV SCH (00:36)
[2016-08-01] MEDS: THIAMINE INJ 100 MG in SODIUM CHLORIDE 0.9% INJ 100 ML IV SCH (00:36)
[2016-08-01 00:37] LABS: ALKALINE PHOSPHATASE 113 U/L (45-117); ALT (GPT) 41 U/L (10-53); ANION GAP 11 MEQ/L (5-15); AST (GOT) 94 U/L (15-37); BICARBONATE 25.9 MEQ/L (21.0-32.0); BLOOD UREA NITROGEN 8 MG/DL (7-18); CHLORIDE 95 MEQ/L (98-107); GLOMERULAR FILTRATION RATE 56 ML/MIN (>89); MAGNESIUM 1.5 MG/DL (1.5-2.5); SODIUM (NA) 132 MEQ/L (136-145); TOTAL BILIRUBIN ADULT 4.7 MG/DL (0.2-1.0)
[2016-08-01] MEDS: methylPREDNISolone SOD SUCC 40 MG/1 ML VIAL IV PUSH SCH ×4 (00:37→21:43)
[2016-08-01 00:40] LABS: POTASSIUM 2.5 MEQ/L (3.5-5.1)
[2016-08-01 04:00] VITALS: BP 146/71; PULSE 98; RESP 18; TEMP 98.9; O2SAT 96
[2016-08-01 08:00] VITALS: BP 113/63; PULSE 77; RESP 16; O2SAT 98
[2016-08-01] MEDS ORDERED: MAGNESIUM OXIDE 400 MG TAB PO ONE ×2 (08:00→11:30)
[2016-08-01] MEDS ORDERED: POTASSIUM CHLORIDE 10 MEQ CONTROLLED RELEASE TAB PO ONE (08:00)
[2016-08-01] MEDS: POTASSIUM CHLOR 20 MEQ PREMIX 100 ML IV SCH ×2 (08:20→11:46)
[2016-08-01] MEDS: LACTULOSE SYRUP 20 GM/30 ML CUP PO SCH ×4 (08:20→21:43)
[2016-08-01] MEDS: SODIUM CHLORIDE 0.9% FLUSH 5 ML FLUSH FLUSH SCH ×2 (08:21→21:49)
[2016-08-01] MEDS: RESP: ALBUTEROL 2.5 MG/IPRATROPIUM 0.5 MG NEB (SCH) NEB ×3 (09:22→21:14)
[2016-08-01 09:38] LABS: AUTOMATED NEUTROPHIL # 8.5 TH/MM3 (1.8-7.7); BASOPHIL % 0.1 % (0.0-2.0); EOSINOPHIL % 0.1 % (0.0-4.0); LYMPH % 5.5 % (9.0-44.0); LYMPHOCYTE # 0.6 TH/MM3 (1.0-4.8); MEAN CELL VOLUME 96.6 FL (80.0-100.0); MEAN CORPUSCULAR HEMOGLOBIN 32.7 PG (27.0-34.0); MEAN CORPUSCULAR HGB CONC 33.8 % (32.0-36.0); MONO % 9.1 % (0.0-8.0); NEUT % 85.2 % (16.0-70.0); PLATELET COUNT 161 TH/MM3 (150-450); RED BLOOD COUNT 3.21 MIL/MM3 (4.00-5.30); RED CELL DISTRIBUTION WIDTH 17.9 % (11.6-17.2)
[2016-08-01 09:51] LABS: HEMO FLAGS AUTO DIFF
[2016-08-01 10:04] LABS: BICARBONATE 21.4 MEQ/L (21.0-32.0)
[2016-08-01 10:05] LABS: POTASSIUM 3.6 MEQ/L (3.5-5.1)
--- NOTE | 2016-08-01 10:33 | HHI.PR ---
Subjective Remarks Awake and alert. Says she is improved since yesterday. Occasional cough. No fever or chills. No n/v/d/c. No hallucinations. Says she doesn't have tremors. Has nausea, did not vomit. No much appetite. Says she has diarrhea, multiple times , no blood in it. Objective Vitals Vital Signs Date Time Temp Pulse Resp B/P Pulse Ox O2 Delivery O2 Flow Rate FiO2 08/01/16 08:00 77 16 113/63 98 08/01/16 04:00 98.9 98 18 146/71 96 08/01/16 00:00 98.7 89 17 114/60 95 07/31/16 21:20 90 07/31/16 20:00 98.1 96 18 131/70 94 07/31/16 17:00 98.6 85 20 130/69 96 07/31/16 13:45 99.0 93 20 132/67 96 07/31/16 11:38 93 24 127/70 95 I/O 07/31/16 07/31/16 07/31/16 08/01/16 08/01/16 08/01/16 07:00 15:00 23:00 07:00 15:00 23:00 Intake Total 0 ml 312 ml 1546 ml Balance 0 ml 312 ml 1546 ml Intake Oral 240 ml IV Total 0 ml 312 ml 1306 ml # Voids 3 3 # Bowel Movements 3 4 Result Diagram: 08/01/1620 08/01/16 0920 Imaging Last Impressions Head CT 07/30/162116 Signed Impressions: Service Date/Time: July 22:58 - CONCLUSION: 1. No evidence of acute intracranial pathology. No masses are identified. Zheng Bourgeois MD Chest X-Ray 07/30/162116 Signed Impressions: Service Date/Time: July 21:29 - CONCLUSION: No definite acute abnormality is seen. Santi Abreu MD Abdomen/Pelvis CT 07/30/162116 Signed Impressions: Service Date/Time: July 23:04 - CONCLUSION: 1. No evidence of acute abdominal or pelvic process. No masses are identified. 2. Cirrhosis with mild ascites 3. Cholelithiasis 4. Right basilar atelectasis versus pneumonia Zheng Bourgeois MD Maxillofacial CT 07/30/16 0000 Signed Impressions: Service Date/Time: July 23:00 - CONCLUSION: 1. There is no evidence of acute fracture. Zheng Bourgeois MD Foot X-Ray 07/30/16 0000 Signed Impressions: Service Date/Time: July 21:31 - CONCLUSION: No acute disease. Santi Abreu MD Cervical Spine CT 07/30/16 0000 Signed Impressions: Service Date/Time: July 23:00 - CONCLUSION: Reversal of the normal cervical lordosis. There is no evidence of acute fracture. Moderate degenerative as above Zheng Bourgeois MD Objective Remarks GENERAL: 51 yo female, appearing older than the stated age, appearing ill. SKIN: Warm and dry. HEAD: Atraumatic. Normocephalic. EYES: Pupils equal and round. No scleral icterus. No injection or drainage. ENT: No nasal bleeding or discharge. Mucous membranes pink and moist. NECK: Trachea midline. No JVD. CARDIOVASCULAR: Regular rate and rhythm. RESPIRATORY: No accessory muscle use. Clear to auscultation. Breath sounds equal bilaterally. GASTROINTESTINAL: Abdomen soft, non-tender, nondistended. Hepatic and splenic margins not palpable. MUSCULOSKELETAL: Extremities without clubbing, cyanosis, or edema. No obvious deformities. NEUROLOGICAL: Awake and alert. No obvious cranial nerve deficits. Motor grossly within normal limits. Five out of 5 muscle strength in the arms and legs. Normal speech. PSYCHIATRIC: Appropriate mood and affect; insight and judgment normal. A/P Problem List: (1) Hepatic encephalopathy ICD Code: K72.90 Status: Acute (2) Alcohol abuse ICD Code: F10.10 Status: Acute (3) Hyponatremia ICD Code: E87.1 Status: Acute (4) Hypokalemia ICD Code: E87.6 Status: Acute (5) Thrombocytopenia ICD Code: D69.6 Status: Acute (6) Neutrophilia ICD Code: D72.9 Status: Acute Assessment and Plan 1. Hepatic Encephalopathy: h/o Alcohol Abuse, now w/ recurrent falls and increased confusion. CT Head/C-Spine negative for acute findings, CT Maxillofacial negative, images reviewed by me. Ammonia 80 at admission. Continue w/ Lactulose. Monitor ammonia level. Trending down. CT Abd/Pelvis w/ cirrhosis, mild ascites. 2. Alcohol Abuse: Drinks daily, however Alcohol negative. Seizure Precautions , CIWA Protocol, MVT/Thiamine/Folate replacement. 3. Hyponatremia: Na 122 on admission. Likely secondary to dehydration and Alcohol Abuse, IVF. Na improving. Monitor Na level. 4. Hypokalemia: K+ 2.8 on admission, replace with IV and PO if tolerates, recheck and replace as needed. 5. Thrombocytopenia: Platelets 124, no previous labs for comparison, likely secondary to long-standing alcohol abuse. No active bleeding, repeat labs in am. Monitor closely in light of coagulopathy. 6. Neutrophilia: WBC 10.8, however neutrophils 76 w/ toxic granulation concerning for underlying infection. CXR negative for acute findings, images reviewed by me, however occasional wet cough. UA concerning of UTI. U cx pending. +Cirrhosis w/ mild ascites. Continue IV Levaquin for possible UTI, SBP or early PNA. 7. Diarrhea. Check C diff and stool studies. Start lactinex. DVT Prophylaxis: Pharmacologic contraindication secondary to thrombocytopenia and elevated INR of 1.4 CM for d/c planning as needed. Discussed with the patient and the nurse. Althea Baptiste MD Aug 01, 2016 10:33
[2016-08-01 10:57] LABS: BANDS 8 % (0-6); CORRECTED NUCLEATED RBC 1 /100 WBC (0-0); MYELOCYTES 4 % (0-0); NEUTROPHIL # MANUAL DIFF 9.2 TH/MM3 (1.8-7.7); PLATELET ESTIMATE SMEAR NORMAL (NORMAL); PLATELET MORPHOLOGY NORMAL (NORMAL); POLYS (SEG NEUTROPHILS) 80 % (16-70); SCAN/DIFF FINAL DIFF MANUAL; WBC DIFF SAMPLE 100
[2016-08-01 11:01] LABS: TARGET CELLS 1+ (NORMAL)
--- NOTE | 2016-08-01 11:56 | PD.CONS ---
HPI History of Present Illness This is a 51 year old female with a PMH of Alcohol Abuse and Tobacco Abuse who is brought to the ER by Daughter secondary to AMS and recurrent falls. Patient had a fall a week ago and suffered facial trauma, for which she did not seek medical attention at the time. GI services have been consulted for cirrhosis and hepatic encephalopathy. Patient is bad historian but able to provide some history, she denies abdominal pain, nausea, vomiting, hematemesis, melena, hematochezia, diarrhea, fever, chills, or SOB. She drinks about 6 pack a week. States she doesn't see well and that causes the recurrent falls. On arrival, Platelets 124, no previous labs for comparison. Hgb 9.5. Na 122. K+ 2.8. Ammonia 80. INR 1.4. AST 79, Bili of 3.8, rest normal. Alcohol negative. CT of abd/pelvis showed Cirrhosis with mild ascites, Cholelithiasis, Right basilar atelectasis versus pneumonia. CXR with no acute findings. CT Head with no acute pathology. Patient denies previous knowledge of cirrhosis. (Stephanie Reed) PFSH Past Medical History PMH: Alcohol Abuse and Tobacco Abuse Past Surgical History PAST SURGICAL HISTORY: (Stephanie Reed) Coded Allergies: Penicillin (Verified Allergy, Unknown, 07/31/16) Medications Current Medications Medications (Trade) Dose Ordered Sig/Ghassan Route Start Time Stop Time Status Last Admin Multivitamins 10 ml/Folic Acid 1 mg/Sodium Chloride 510.2 ml @ 125 mls/hr Q24H IV 07/31/16 01:00 08/05/16 00:59 08/01/16 00:36 (Thiamine Inj/NS Inj) 101 ml @ 100 mls/hr Q24H IV 07/31/16 01:00 08/03/16 00:59 08/01/16 00:36 (Vitamin B1) 100 mg DAILY PO 08/03/16 09:00 (Romazicon Inj) 0.2 mg Q1M PRN IV PUSH 07/31/16 01:00 (Ativan) 1 mg Q4H PRN PO 07/31/16 01:00 (Ativan Inj) 1 mg Q4H PRN IV PUSH 07/31/16 01:00 (Ativan) 2 mg Q2H PRN PO 07/31/16 01:00 (Ativan Inj) 2 mg Q2H PRN IV PUSH 07/31/16 01:00 (Ativan Inj) 2 mg Q1H PRN IV PUSH 07/31/16 01:00 (Ativan Inj) 2 mg Q15M PRN IV PUSH 07/31/16 01:00 (Haldol Inj) 2 mg Q15M PRN IM 07/31/16 01:00 (Lactulose Liq) 30 ml QID PO 07/31/16 09:00 08/01/16 08:20 (NS Flush) 2 ml UNSCH PRN FLUSH 07/31/16 01:00 (NS Flush) 2 ml BID FLUSH 07/31/16 09:00 08/01/16 08:21 (Zofran Inj) 4 mg Q6H PRN IVP 07/31/16 01:00 (Dulcolax Supp) 10 mg DAILY PRN [place] 07/31/16 01:00 Acetaminophen 650 mg 650 mg Q6H PRN PO 07/31/16 01:00 Levofloxacin/ Dextrose 150 ml @ 100 mls/hr Q24H IV 07/31/16 01:00 08/01/16 00:35 Sodium Chloride 1,000 ml @ 100 mls/hr Q10H IV 07/31/16 18:30 07/31/16 18:30 (KCl 20 Meq Premix Inj) 100 ml @ 50 mls/hr Q2H IV 08/01/16 08:00 08/01/16 11:59 08/01/16 08:20 (SoluMEDROL INJ) 40 mg Q8HR IV PUSH 08/01/16 14:00 Lactobacillus Acidophilus 1 tab 1 tab BID PO 08/01/16 21:00 (Potassium Phosphate Inj/NS 250 ml Inj) 260 ml @ 43.333 mls/ hr ONCE ONCE IV 08/01/16 13:00 08/01/16 18:59 (K-Phos) 500 mg DAILY PO 08/02/16 09:00 08/05/16 08:59 Family History No family history of colon or liver cancer Social History Drinks daily. Smokes 1ppd. Negative for drugs. (Stephanie Reed) Review of Systems Constitutional: COMPLAINS OF: Fatigue, DENIES: Weight loss Endocrine: DENIES: Polyuria Eyes: COMPLAINS OF: Blurred vision Ears, nose, mouth, throat: DENIES: Hoarseness Respiratory: DENIES: Shortness of breath Cardiovascular: DENIES: Lower Extremity Edema Gastrointestinal: DENIES: Abdominal pain, Black stools, Bloody stools, Constipation, Diarrhea, Nausea, Vomiting, Difficulty Swallowing, Anorexia, Odynophagia, Swelling of Abdomen, Heartburn, Hematemesis Genitourinary: DENIES: Hematuria Musculoskeletal: DENIES: Neck pain Hematologic/lymphatic: COMPLAINS OF: Bruising Immunologic/allergic: DENIES: Eczema Neurologic: COMPLAINS OF: Abnormal gait Psychiatric: DENIES: Anxiety (Derek,Stephanie [employer]) GI Exam Vitals I&O Vital Signs Date Time Temp Pulse Resp B/P Pulse Ox O2 Delivery O2 Flow Rate FiO2 08/01/16 08:00 77 16 113/63 98 08/01/16 04:00 98.9 98 18 146/71 96 08/01/16 00:00 98.7 89 17 114/60 95 07/31/16 21:20 90 07/31/16 20:00 98.1 96 18 131/70 94 07/31/16 17:00 98.6 85 20 130/69 96 07/31/16 13:45 99.0 93 20 132/67 96 07/31/16 11:38 93 24 127/70 95 I/O 07/31/16 07/31/16 07/31/16 08/01/16 08/01/16 08/01/16 07:00 15:00 23:00 07:00 15:00 23:00 Intake Total 0 ml 312 ml 1546 ml Balance 0 ml 312 ml 1546 ml Intake Oral 240 ml IV Total 0 ml 312 ml 1306 ml # Voids 3 3 # Bowel Movements 3 4 Imaging Last Impressions Head CT 07/30/162116 Signed Impressions: Service Date/Time: July 22:58 - CONCLUSION: 1. No evidence of acute intracranial pathology. No masses are identified. Zheng Bourgeois MD Chest X-Ray 07/30/162116 Signed Impressions: Service Date/Time: July 21:29 - CONCLUSION: No definite acute abnormality is seen. Santi Abreu MD Abdomen/Pelvis CT 07/30/162116 Signed Impressions: Service Date/Time: July 23:04 - CONCLUSION: 1. No evidence of acute abdominal or pelvic process. No masses are identified. 2. Cirrhosis with mild ascites 3. Cholelithiasis 4. Right basilar atelectasis versus pneumonia Zheng Bourgeois MD Maxillofacial CT 07/30/16 0000 Signed Impressions: Service Date/Time: July 23:00 - CONCLUSION: 1. There is no evidence of acute fracture. Zheng Bourgeois MD Foot X-Ray 07/30/16 0000 Signed Impressions: Service Date/Time: July 21:31 - CONCLUSION: No acute disease. Santi Abreu MD Cervical Spine CT 07/30/16 Signed Impressions: Service Date/Time: July 23:00 - CONCLUSION: Reversal of the normal cervical lordosis. There is no evidence of acute fracture. Moderate degenerative as above Zheng Bourgeois MD Laboratory Test 07/31/16 08/01/16 23:52 09:20 Sodium Level 132 MEQ/L 132 MEQ/L Potassium Level 2.5 MEQ/L 3.6 MEQ/L Chloride Level 95 MEQ/L 100 MEQ/L Carbon Dioxide Level 25.9 MEQ/L 21.4 MEQ/L Anion Gap 11 MEQ/L 11 MEQ/L Blood Urea Nitrogen 8 MG/DL 8 MG/DL Creatinine 1.03 MG/DL 0.66 MG/DL Estimat Glomerular Filtration 56 ML/MIN 94 ML/MIN Rate Random Glucose 134 MG/DL 144 MG/DL Calcium Level 8.1 MG/DL 7.9 MG/DL Phosphorus Level 1.1 MG/DL Magnesium Level 1.5 MG/DL Total Bilirubin 4.7 MG/DL Aspartate Amino Transf 94 U/L (AST/SGOT) Alanine Aminotransferase 41 U/L (ALT/SGPT) Alkaline Phosphatase 113 U/L Total Protein 7.2 GM/DL Albumin 2.2 GM/DL White Blood Count 10.0 TH/MM3 Red Blood Count 3.21 MIL/MM3 Hemoglobin 10.5 GM/DL Hematocrit 31.0 % Mean Corpuscular Volume 96.6 FL Mean Corpuscular Hemoglobin 32.7 PG Mean Corpuscular Hemoglobin 33.8 % Concent Red Cell Distribution Width 17.9 % Platelet Count 161 TH/MM3 Mean Platelet Volume 7.9 FL Neutrophils (%) (Auto) 85.2 % Lymphocytes (%) (Auto) 5.5 % Monocytes (%) (Auto) 9.1 % Eosinophils (%) (Auto) 0.1 % Basophils (%) (Auto) 0.1 % Neutrophils # (Auto) 8.5 TH/MM3 Lymphocytes # (Auto) 0.6 TH/MM3 Monocytes # (Auto) 0.9 TH/MM3 Eosinophils # (Auto) 0.0 TH/MM3 Basophils # (Auto) 0.0 TH/MM3 CBC Comment AUTO DIFF Differential Total Cells 100 Counted Neutrophils % (Manual) 80 % Band Neutrophils % 8 % Lymphocytes % 1 % Monocytes % 7 % Neutrophils # (Manual) 9.2 TH/MM3 Myelocytes 4 % Nucleated Red Blood Cells 1 /100 WBC Differential Comment FINAL DIFF MANUAL Platelet Estimate NORMAL Platelet Morphology Comment NORMAL Target Cells 1+ Red Cell Morphology Comment Ammonia 18 MCMOL/L Date/Time Procedure Status Source Growth 07/31/16 05:00 Urine Culture Received Urine Catheterized Urine Pending Physical Examination HEENT:normocephalic; no jaundice. traumatic left facial NECK: Neck is supple, no JVD, no lymphadenopathy. CHEST: Chest is clear to auscultation and percussion. CARDIAC: Regular rate and rhythm with no murmur gallop or rubs. ABDOMEN: Soft, nondistended, nontender; no hepatosplenomegaly; bowel sounds are present in all four quadrants. mild ascites EXTREMITIES: No clubbing, cyanosis, or edema. SKIN: redness, ecchymosis to left face ANIMAL BEHAVIORIST: alert and oriented times three. (Derek,Stephanie BONILLA) Assessment and Plan Plan - New diagnosis of cirrhosis (MELD 10)- PMH of Alcohol Abuse and Tobacco Abuse who is brought to the ER by Daughter secondary to AMS and recurrent falls. Patient had a fall a week ago and suffered facial trauma, for which she did not seek medical attention at the time. GI services have been consulted for cirrhosis and hepatic encephalopathy. Patient is bad historian but able to provide some history, she denies abdominal pain, nausea, vomiting, hematemesis , melena, hematochezia, diarrhea, fever, chills, or SOB. On arrival, Platelets 124, no previous labs for comparison. Hgb 9.5. Na 122. K+ 2.8. Ammonia 80. INR 1.4. AST 79, Bili of 3.8, rest normal. Alcohol negative. CT of abd/pelvis showed Cirrhosis with mild ascites, Cholelithiasis, Right basilar atelectasis versus pneumonia. CXR with no acute findings. CT Head with no acute pathology. Patient denies previous knowledge of cirrhosis. - Hepatic encephalopathy- ammonia of 80, lactulose - AMS/recurrent falls. most likely multi factorial, electrolyte abnormalities, high ammonia, improving - Anemia- No active bleeding reported, hgb 10.5, Hgb was 9.5 on admission - Electrolyte abnormalities, hyponatremia, hypokalemia per attending - Leukocytosis- Resolved - ANN- improving - Alcohol abuse- counseled on cessation Plan: - low salt diet - immunology and serology, AFP will be ordered - EGD on Wednesday - Alcohol cessation - Monitor labs - Monitor hh - cont. lactulose - Supportive care - Patient seen and examined by Dr. Milligan and myself and this note is written on her behalf. (Stephanie Reed) Physician Comments seen, examined agree with above (Ila Milligan MD) Stephanie Rede Aug 01, 2016 11:56 Ila Milligan MD Aug 01, 2016 14:24
[2016-08-01 12:00] VITALS: BP 110/68; PULSE 74; RESP 18; TEMP 95.9; O2SAT 97
[2016-08-01] MEDS ORDERED: POTASSIUM PHOSPHATE INJ 30 MMOL in SODIUM CHLOR 0.9% 250 ML INJ 250 ML IV ONE (13:00)
[2016-08-01 14:10] LABS: FERRITIN 195 NG/ML (8-252); TRANSFERRIN IRON PROFILE 151 MG/DL (200-360)
[2016-08-01] MEDS: SODIUM CHLOR 0.9% 1000 ML INJ 1,000 ML IV SCH ×2 (14:30→23:34)
[2016-08-01 16:00] VITALS: BP 124/70; PULSE 80; RESP 18; TEMP 96.9; O2SAT 97
[2016-08-01 16:29] LABS: C. DIFF EPI 027 PRESUMPTIVE NEGATIVE (NEGATIVE); C. DIFF TOXIN PCR NEGATIVE (NEGATIVE)
[2016-08-01 20:00] VITALS: BP 122/69; PULSE 85; RESP 17; TEMP 97.1; O2SAT 96
[2016-08-01] MEDS: LACTOBACILLUS ACIDOPHILUS TAB PO SCH (21:43)
[2016-08-02] VITALS (8 sets, daily range): BP systolic 110–124; BP diastolic 60–72; PULSE 80–92; RESP 17–18; TEMP 96.3–99; O2SAT 96–100
[2016-08-02] MEDS: THIAMINE INJ 100 MG in SODIUM CHLORIDE 0.9% INJ 100 ML IV SCH (01:04)
[2016-08-02] MEDS: MULTIVITAMIN INJ 10 ML, FOLIC ACID INJ 1 MG in SODIUM CHLORID 0.9% 500 ML INJ 500 ML IV SCH ×2 (01:04→23:58)
[2016-08-02] MEDS: methylPREDNISolone SOD SUCC 40 MG/1 ML VIAL IV PUSH SCH ×3 (05:13→20:55)
[2016-08-02 07:53] LABS: AUTOMATED NEUTROPHIL # 11.5 TH/MM3 (1.8-7.7); BASOPHIL % 0.2 % (0.0-2.0); HEMATOCRIT 26.6 % (35.0-46.0); LYMPH % 2.2 % (9.0-44.0); LYMPHOCYTE # 0.3 TH/MM3 (1.0-4.8); MEAN CELL VOLUME 97.2 FL (80.0-100.0); MEAN CORPUSCULAR HEMOGLOBIN 33.4 PG (27.0-34.0); MEAN CORPUSCULAR HGB CONC 34.4 % (32.0-36.0); MONO % 12.1 % (0.0-8.0); NEUT % 85.5 % (16.0-70.0); PLATELET COUNT 166 TH/MM3 (150-450); RED BLOOD COUNT 2.73 MIL/MM3 (4.00-5.30); RED CELL DISTRIBUTION WIDTH 18.7 % (11.6-17.2); WHITE BLOOD COUNT 13.5 TH/MM3 (4.0-11.0)
[2016-08-02 07:54] LABS: HEMO FLAGS AUTO DIFF
[2016-08-02 08:24] LABS: BICARBONATE 19.4 MEQ/L (21.0-32.0); MAGNESIUM 1.6 MG/DL (1.5-2.5); POTASSIUM 3.7 MEQ/L (3.5-5.1)
[2016-08-02 09:06] LABS: BANDS 7 % (0-6); METAMYELOCYTES 1 % (0-1); PLATELET ESTIMATE SMEAR NORMAL (NORMAL); PLATELET MORPHOLOGY NORMAL (NORMAL); POLYS (SEG NEUTROPHILS) 81 % (16-70); SCAN/DIFF FINAL DIFF MANUAL; WBC DIFF SAMPLE 100
[2016-08-02 09:07] LABS: TARGET CELLS 1+ (NORMAL)
--- NOTE | 2016-08-02 09:34 | PD.CONS ---
Provisional Diagnosis Admission Date Jul 31, 2016 at 00:45 [place] I. Hepatic encephalopathy K 72.90, alcohol dependency f 10.20 History of Present Illness Service Psychiatry Consult Requested By Attending Joyce Reason for Consult act Primary Care Physician Unknown HPI Patient is a [age] white female admitted to the hospital for treatment of hepatic encephalopathy metabolic issues, upon review of chart I find no Paz act, but there is a Marchman act documented in the chart. Patient seen by me with nurse present throughout session. Patient is alert fairly well oriented to person place time and situation does reluctantly acknowledge daily alcohol drinking with a.m. drinking and swallow drinking she is vague about blacking out her passing out she is vague about any past detox history or legal issues related to this. She denies any prior psychiatric history psychiatric medication or hospitalizations. She denies suicidality or homicidality. She does acknowledge some hallucinations recently. Though denies with the present time. It is noted that she does have some fine tremors of her both upper extremities. At the present time patient does not meet criteria for a psychiatric hospitalization does not meet criteria for Paz act. I would recommend you continue enforcement of the Marchman act Review of Systems ROS Limitations: Clinical Condition, Other (hepatic encephalopathy) Constitutional: DENIES: Diaphoretic episodes, Fatigue, Fever, Weight gain, Weight loss, Chills, Dizziness, Change in appetite, Night Sweats Endocrine: DENIES: Abnorml menstrual pattern, Heat/cold intolerance, Polydipsia , Polyuria, Polyphagia Eyes: DENIES: Blurred vision, Diplopia, Eye inflammation, Eye pain, Vision loss , Photosensitivity, Double Vision Ears, nose, mouth, throat: DENIES: Tinnitus, Hearing loss, Vertigo, Nasal discharge, Oral lesions, Throat pain, Hoarseness, Ear Pain, Running Nose, Epistaxis, Sinus Pain, Toothache, Odynophagia Respiratory: DENIES: Apneas, Cough, Snoring, Wheezing, Hemoptysis, Sputum production, Shortness of breath Cardiovascular: DENIES: Chest pain, Palpitations, Syncope, Dyspnea on Exertion , PND, Lower Extremity Edema, Orthopnea, Claudication Gastrointestinal: DENIES: Abdominal pain, Black stools, Bloody stools, Constipation, Diarrhea, Nausea, Vomiting, Difficulty Swallowing, Anorexia Genitourinary: DENIES: Abnormal vaginal bleeding, Dysmenorrhea, Dyspareunia, Sexual dysfunction, Urinary frequency, Urinary incontinence, Urgency, Hematuria , Dysuria, Nocturia, Vaginal discharge Musculoskeletal: DENIES: Joint pain, Muscle aches, Stiffness, Joint Swelling, Back pain, Neck pain Integumentary: DENIES: Abnormal pigmentation, Pruritus, Rash, Nail changes, Breast masses, Breast skin changes, Nipple discharge Hematologic/lymphatic: DENIES: Bruising, Lymphadenopathy Immunologic/allergic: DENIES: Eczema, Urticaria Neurologic: COMPLAINS OF: Tremor (hepatic encephalopathy) Psychiatric: DENIES: Anxiety, Confusion, Mood changes, Depression, Hallucinations, Agitation, Suicidal Ideation, Homicidal Ideation, Delusions Past Family Social History Coded Allergies: Penicillin (Verified Allergy, Unknown, 07/31/16) Past Medical History Please see med surge assessments No Active Prescriptions or Reported Meds Current Medications Medications (Trade) Dose Ordered Sig/Ghassan Route Start Time Stop Time Status Last Admin Multivitamins 10 ml/Folic Acid 1 mg/Sodium Chloride 510.2 ml @ 125 mls/hr Q24H IV 07/31/16 01:00 08/05/16 00:59 08/02/16 01:04 (Thiamine Inj/NS Inj) 101 ml @ 100 mls/hr Q24H IV 07/31/16 01:00 08/03/16 00:59 08/02/16 01:04 (Vitamin B1) 100 mg DAILY PO 08/03/16 09:00 (Romazicon Inj) 0.2 mg Q1M PRN IV PUSH 07/31/16 01:00 (Ativan) 1 mg Q4H PRN PO 07/31/16 01:00 (Ativan Inj) 1 mg Q4H PRN IV PUSH 07/31/16 01:00 (Ativan) 2 mg Q2H PRN PO 07/31/16 01:00 (Ativan Inj) 2 mg Q2H PRN IV PUSH 07/31/16 01:00 (Ativan Inj) 2 mg Q1H PRN IV PUSH 07/31/16 01:00 (Ativan Inj) 2 mg Q15M PRN IV PUSH 07/31/16 01:00 (Haldol Inj) 2 mg Q15M PRN IM 07/31/16 01:00 (Lactulose Liq) 30 ml QID PO 07/31/16 09:00 08/01/16 21:43 (NS Flush) 2 ml UNSCH PRN FLUSH 07/31/16 01:00 (NS Flush) 2 ml BID FLUSH 07/31/16 09:00 08/01/16 21:49 (Zofran Inj) 4 mg Q6H PRN IVP 07/31/16 01:00 (Dulcolax Supp) 10 mg DAILY PRN [place] 07/31/16 01:00 Acetaminophen 650 mg 650 mg Q6H PRN PO 07/31/16 01:00 Levofloxacin/ Dextrose 150 ml @ 100 mls/hr Q24H IV 07/31/16 01:00 08/01/16 23:33 (NS 1000 ml Inj) 1,000 ml @ 100 mls/hr Q10H IV 07/31/16 18:30 08/01/16 23:34 (SoluMEDROL INJ) 40 mg Q8HR IV PUSH 08/01/16 14:00 08/02/16 05:13 (Lactinex) 1 tab BID PO 08/01/16 21:00 08/01/16 21:43 (K-Phos) 500 mg DAILY PO 08/02/16 09:00 08/05/16 08:59 Family History Denies mental illness and family Social History Patient has supportive daughter Patient's Strengths (min. 2) Patient verbal irritable [facility] Physical Exam Please see med [facility] [place] Vital Signs Vital Signs Date Time Temp Pulse Resp B/P Pulse Ox O2 Delivery O2 Flow Rate FiO2 08/02/16 08:00 96.3 80 18 124/72 97 07/31/16 06:29 Room Air I/O 08/01/16 08/01/16 08/02/16 08:00 16:00 00:00 Intake Total 1546 ml 1337 ml 240 ml Balance 1546 ml 1337 ml 240 ml Mental Status Examination Alert fairly well oriented and slender somewhat disheveled white female lying calmly in her bed of finding tremors both upper extremities noted, she has fair eye contact his overall cooperative is somewhat guarded Appearance Somewhat disheveled Speech: Unremarkable, Tangential (mildly) Memory: Impaired (describe) (somewhat confused) Thought Process: Linear Thought Content: Unremarkable Hallucination Type: Auditory (had recent history voices) Attention and Concentration: Easily Distracted Suicidal Ideation: No Previous Suicide Attempts: No Homicidal Ideation: No Previous Homicide Attempts: No Insight: Poor Judgement: Poor Affect: Other (decreased range intensity) Mood: Other (restricted) Motor Activity: Normal gait (patient in bed unable to ascertain) Assessment & Plan Problem List: (1) Hepatic encephalopathy ICD Code: K72.90 (2) Alcohol dependency ICD Code: F10.20 Assessment & Plan Estimated LOS: days this time patient does not meet Paz act criteria, I would suggest continuing enforcing the Marchman act. No suggestion for medication by me. Thanks for consult I will sign off at the present time Discharge Planning To be determined Santi Stuart MD Aug 02, 2016 09:34
--- NOTE | 2016-08-02 09:51 | HHI.PR ---
Subjective Remarks Patient in bed says she is having less pain. No nausea or vomiting. not eating much . No diarrhea. Objective Vitals Vital Signs Date Time Temp Pulse Resp B/P Pulse Ox O2 Delivery O2 Flow Rate FiO2 08/02/16 08:00 96.3 80 18 124/72 97 08/02/16 04:00 98.0 92 18 114/60 99 08/02/16 00:00 98.4 83 18 115/64 96 08/01/16 20:00 97.1 85 17 122/69 96 08/01/16 16:00 96.9 80 18 124/70 97 08/01/16 12:00 95.9 74 18 110/68 97 I/O 08/01/16 08/01/16 08/01/16 08/02/16 08/02/16 08/02/16 07:00 15:00 23:00 07:00 15:00 23:00 Intake Total 1546 ml 1337 ml 240 ml 240 ml Balance 1546 ml 1337 ml 240 ml 240 ml Intake Oral 240 ml 240 ml 240 ml 240 ml IV Total 1306 ml 1097 ml # Voids 3 2 2 2 # Bowel Movements 4 2 2 1 Result Diagram: 08/02/16 0737 08/02/16 0737 Imaging Last Impressions Head CT 07/30/162116 Signed Impressions: Service Date/Time: July 22:58 - CONCLUSION: 1. No evidence of acute intracranial pathology. No masses are identified. Zheng Bourgeois MD Chest X-Ray 07/30/162116 Signed Impressions: Service Date/Time: July 21:29 - CONCLUSION: No definite acute abnormality is seen. Santi Abreu MD Abdomen/Pelvis CT 07/30/162116 Signed Impressions: Service Date/Time: July 23:04 - CONCLUSION: 1. No evidence of acute abdominal or pelvic process. No masses are identified. 2. Cirrhosis with mild ascites 3. Cholelithiasis 4. Right basilar atelectasis versus pneumonia Zheng Bourgeois MD Maxillofacial CT 07/30/16 0000 Signed Impressions: Service Date/Time: July 23:00 - CONCLUSION: 1. There is no evidence of acute fracture. Zheng Bourgeois MD Foot X-Ray 07/30/16 0000 Signed Impressions: Service Date/Time: July 21:31 - CONCLUSION: No acute disease. Santi Abreu MD Cervical Spine CT 07/30/16 0000 Signed Impressions: Service Date/Time: July 23:00 - CONCLUSION: Reversal of the normal cervical lordosis. There is no evidence of acute fracture. Moderate degenerative as above Zheng Bourgeois MD Objective Remarks GENERAL: 51 yo female, appearing older than the stated age, appearing ill. SKIN: Warm and dry. HEAD: Atraumatic. Normocephalic. EYES: Pupils equal and round. No scleral icterus. No injection or drainage. ENT: No nasal bleeding or discharge. Mucous membranes pink and moist. NECK: Trachea midline. No JVD. CARDIOVASCULAR: Regular rate and rhythm. RESPIRATORY: No accessory muscle use. Clear to auscultation. Breath sounds equal bilaterally. GASTROINTESTINAL: Abdomen soft, non-tender, nondistended. Hepatic and splenic margins not palpable. MUSCULOSKELETAL: Extremities without clubbing, cyanosis, or edema. No obvious deformities. NEUROLOGICAL: Awake and alert. No obvious cranial nerve deficits. Motor grossly within normal limits. Five out of 5 muscle strength in the arms and legs. Normal speech. PSYCHIATRIC: Appropriate mood and affect; insight and judgment normal. A/P Problem List: (1) Hepatic encephalopathy ICD Code: K72.90 Status: Acute (2) Alcohol abuse ICD Code: F10.10 Status: Acute (3) Hyponatremia ICD Code: E87.1 Status: Acute (4) Hypokalemia ICD Code: E87.6 Status: Acute (5) Thrombocytopenia ICD Code: D69.6 Status: Acute (6) Neutrophilia ICD Code: D72.9 Status: Acute Assessment and Plan 1. Hepatic Encephalopathy: h/o Alcohol Abuse, now w/ recurrent falls and increased confusion. CT Head/C-Spine negative for acute findings, CT Maxillofacial negative, images reviewed by me. Ammonia 80 at admission. Continue w/ Lactulose. Monitor ammonia level. Trending down. CT Abd/Pelvis w/ cirrhosis, mild ascites. Plan for EGD on Wednesday. 2. Alcohol Abuse: Drinks daily, however Alcohol negative. Seizure Precautions , CIWA Protocol, MVT/Thiamine/Folate replacement. 3. Hyponatremia: Na 122 on admission. Likely secondary to dehydration and Alcohol Abuse, IVF. Na improving. Monitor Na level. 4. Hypokalemia: K+ 2.8 on admission, replace with IV and PO if tolerates, recheck and replace as needed. 5. Thrombocytopenia: Platelets 124, no previous labs for comparison, likely secondary to long-standing alcohol abuse. No active bleeding, repeat labs in am. Monitor closely in light of coagulopathy. 6. Neutrophilia: WBC 10.8, however neutrophils 76 w/ toxic granulation concerning for underlying infection. CXR negative for acute findings, images reviewed by me, however occasional wet cough. UA concerning of UTI. U cx pending. +Cirrhosis w/ mild ascites. Continue IV Levaquin for possible UTI, SBP or early PNA. 7. Diarrhea. Check C diff negative. Check stool studies. Start lactinex. DVT Prophylaxis: Pharmacologic contraindication secondary to thrombocytopenia and elevated INR of 1.4 CM for d/c planning as needed. Discussed with the patient and the nurse. Althea Baptiste MD Aug 02, 2016 09:51
[2016-08-02] MEDS: RESP: ALBUTEROL 2.5 MG/IPRATROPIUM 0.5 MG NEB (SCH) NEB ×3 (09:53→19:44)
[2016-08-02] MEDS: POTASSIUM PHOSPHATE MONOBASIC 500 MG TAB PO SCH (10:25)
[2016-08-02] MEDS: SODIUM CHLORIDE 0.9% FLUSH 5 ML FLUSH FLUSH SCH ×2 (10:25→20:54)
[2016-08-02] MEDS: LACTULOSE SYRUP 20 GM/30 ML CUP PO SCH ×4 (10:25→20:54)
[2016-08-02] MEDS: LACTOBACILLUS ACIDOPHILUS TAB PO SCH ×2 (10:25→20:54)
[2016-08-02] MEDS: SODIUM CHLOR 0.9% 1000 ML INJ 1,000 ML IV SCH ×2 (10:26→20:57)
[2016-08-02] MEDS: LEVOFLOXACIN 750 MG PREMIX INJ 150 ML IV SCH (23:58)
[2016-08-03] VITALS: BP 126/72; PULSE 76; RESP 16; TEMP 98.1; O2SAT 99
[2016-08-03 04:00] VITALS: BP_SYST 112; BP_SYST 115; BP_DIAS 56; BP_DIAS 74; PULSE 75; PULSE 80; RESP 17; RESP 18; TEMP 97.1; TEMP 97.5; O2SAT 97; O2SAT 98
[2016-08-03] MEDS: methylPREDNISolone SOD SUCC 40 MG/1 ML VIAL IV PUSH SCH ×3 (05:06→22:00)
[2016-08-03] MEDS: SODIUM CHLOR 0.9% 1000 ML INJ 1,000 ML IV SCH ×2 (05:10→14:33)
--- NOTE | 2016-08-03 07:56 | HHI.PR ---
Subjective Remarks Patient returned from EGD. Says she had multiple tomes diarrhea she can't count. No n/v. Pain is controlled by meds. No fever or chills. Objective Vitals Vital Signs Date Time Temp Pulse Resp B/P Pulse Ox O2 Delivery O2 Flow Rate FiO2 08/03/16 04:00 97.1 75 17 112/56 98 08/03/16 00:00 98.1 76 16 126/72 99 08/02/16 20:30 80 08/02/16 20:00 99.0 81 17 119/69 100 08/02/16 16:00 96.6 85 18 118/70 98 08/02/16 13:30 98.7 84 18 110/64 96 08/02/16 10:10 86 08/02/16 08:00 96.3 80 18 124/72 97 I/O 08/02/16 08/02/16 08/02/16 08/03/16 08/03/16 08/03/16 07:00 15:00 23:00 07:00 15:00 23:00 Intake Total 240 ml 1018 ml Balance 240 ml 1018 ml Intake Oral 240 ml 240 ml IV Total 778 ml # Voids 2 4 3 3 # Bowel Movements 1 3 3 3 Result Diagram: 08/02/1637 08/02/16736 Imaging Last Impressions Head CT 07/30/162116 Signed Impressions: Service Date/Time: July 22:58 - CONCLUSION: 1. No evidence of acute intracranial pathology. No masses are identified. Zheng Bourgeois MD Chest X-Ray 07/30/162116 Signed Impressions: Service Date/Time: July 21:29 - CONCLUSION: No definite acute abnormality is seen. Santi Abreu MD Abdomen/Pelvis CT 07/30/162116 Signed Impressions: Service Date/Time: July 23:04 - CONCLUSION: 1. No evidence of acute abdominal or pelvic process. No masses are identified. 2. Cirrhosis with mild ascites 3. Cholelithiasis 4. Right basilar atelectasis versus pneumonia Zheng Bourgeois MD Maxillofacial CT 07/30/16 0000 Signed Impressions: Service Date/Time: July 23:00 - CONCLUSION: 1. There is no evidence of acute fracture. Zheng Bourgeois MD Foot X-Ray 07/30/16 0000 Signed Impressions: Service Date/Time: July 21:31 - CONCLUSION: No acute disease. Santi Abreu MD Cervical Spine CT 07/30/16 0000 Signed Impressions: Service Date/Time: July 23:00 - CONCLUSION: Reversal of the normal cervical lordosis. There is no evidence of acute fracture. Moderate degenerative as above Zheng Bourgeois MD Objective Remarks GENERAL: 51 yo female, appearing older than the stated age, appearing ill. SKIN: Warm and dry. HEAD: Atraumatic. Normocephalic. EYES: Pupils equal and round. No scleral icterus. No injection or drainage. ENT: No nasal bleeding or discharge. Mucous membranes pink and moist. NECK: Trachea midline. No JVD. CARDIOVASCULAR: Regular rate and rhythm. RESPIRATORY: No accessory muscle use. Clear to auscultation. Breath sounds equal bilaterally. GASTROINTESTINAL: Abdomen soft, non-tender, nondistended. Hepatic and splenic margins not palpable. MUSCULOSKELETAL: Extremities without clubbing, cyanosis, or edema. No obvious deformities. NEUROLOGICAL: Awake and alert. No obvious cranial nerve deficits. Motor grossly within normal limits. Five out of 5 muscle strength in the arms and legs. Normal speech. PSYCHIATRIC: Appropriate mood and affect; insight and judgment normal. A/P Problem List: (1) Hepatic encephalopathy ICD Code: K72.90 Status: Acute (2) Alcohol abuse ICD Code: F10.10 Status: Acute (3) Hyponatremia ICD Code: E87.1 Status: Acute (4) Hypokalemia ICD Code: E87.6 Status: Acute (5) Thrombocytopenia ICD Code: D69.6 Status: Acute (6) Neutrophilia ICD Code: D72.9 Status: Acute Assessment and Plan 1. Hepatic Encephalopathy: h/o Alcohol Abuse, now w/ recurrent falls and increased confusion. CT Head/C-Spine negative for acute findings, CT Maxillofacial negative, images reviewed by me. Ammonia 80 at admission. Continue w/ Lactulose. Monitor ammonia level. Trending down. CT Abd/Pelvis w/ cirrhosis, mild ascites. 08/03 S/P EGD, plan for colonoscopy 2. Alcohol Abuse: Drinks daily, however Alcohol negative. Seizure Precautions , CIWA Protocol, MVT/Thiamine/Folate replacement. 3. Hyponatremia: Na 122 on admission. Likely secondary to dehydration and Alcohol Abuse, IVF. Na improving. Monitor Na level. 4. Hypokalemia: K+ 2.8 on admission, replace with IV and PO if tolerates, recheck and replace as needed. 5. Thrombocytopenia: Platelets 124, no previous labs for comparison, likely secondary to long-standing alcohol abuse. No active bleeding, repeat labs in am. Monitor closely in light of coagulopathy. 6. Neutrophilia: WBC 10.8, however neutrophils 76 w/ toxic granulation concerning for underlying infection. CXR negative for acute findings, images reviewed by me, however occasional wet cough. UA concerning of UTI. U cx pending. +Cirrhosis w/ mild ascites. Continue IV Levaquin for possible UTI, SBP or early PNA. 7. Diarrhea. Check C diff negative. Check stool studies. Start lactinex. Stool with Norovirus positive. ID control was notified spoke with Myra. Keep isolated. Keep hydrated, continue IVF. 08/03 S/P EGD, plan for colonoscopy DVT Prophylaxis: Pharmacologic contraindication secondary to thrombocytopenia and elevated INR of 1.4 CM for d/c planning as needed. Discussed with the patient and the nurse. Althea Baptiste MD Aug 03, 2016 07:56
[2016-08-03 08:26] LABS: AUTOMATED NEUTROPHIL # 11.4 TH/MM3 (1.8-7.7); BASOPHIL % 0.1 % (0.0-2.0); HEMATOCRIT 29.4 % (35.0-46.0); HEMO FLAGS DIFF FINAL; LYMPH % 3.4 % (9.0-44.0); LYMPHOCYTE # 0.4 TH/MM3 (1.0-4.8); MEAN CELL VOLUME 97.2 FL (80.0-100.0); MEAN CORPUSCULAR HEMOGLOBIN 32.5 PG (27.0-34.0); MEAN CORPUSCULAR HGB CONC 33.5 % (32.0-36.0); MONO % 9.4 % (0.0-8.0); NEUT % 87.1 % (16.0-70.0); PLATELET COUNT 183 TH/MM3 (150-450); RED BLOOD COUNT 3.03 MIL/MM3 (4.00-5.30); RED CELL DISTRIBUTION WIDTH 18.8 % (11.6-17.2); WHITE BLOOD COUNT 13.1 TH/MM3 (4.0-11.0)
[2016-08-03 08:30] VITALS: BP 112/56; PULSE 75; RESP 17; TEMP 97.1; O2SAT 98
[2016-08-03] MEDS: RESP: ALBUTEROL 2.5 MG/IPRATROPIUM 0.5 MG NEB (SCH) NEB ×3 (08:40→20:29)
[2016-08-03 08:53] LABS: BICARBONATE 18.8 MEQ/L (21.0-32.0); POTASSIUM 3.6 MEQ/L (3.5-5.1)
[2016-08-03] MEDS ORDERED: PROPOFOL 200 MG/20 ML AMP IV ONE (08:55)
--- NOTE | 2016-08-03 09:46 | HHI.GIFU ---
Subjective Remarks patient feels ok, still tired, no active bleed today. Objective Vitals I&O Vital Signs Date Time Temp Pulse Resp B/P Pulse Ox O2 Delivery O2 Flow Rate FiO2 08/03/16 09:24 83 18 112/73 95 08/03/16 09:15 87 18 91/96 97 08/03/16 09:04 97.8 103 18 103/76 95 08/03/16 08:30 97.1 75 17 112/56 98 08/03/16 04:00 97.1 75 17 112/56 98 08/03/16 00:00 98.1 76 16 126/72 99 08/02/16 20:30 80 08/02/16 20:00 99.0 81 17 119/69 100 08/02/16 16:00 96.6 85 18 118/70 98 08/02/16 13:30 98.7 84 18 110/64 96 08/02/16 10:10 86 I/O 08/02/16 08/02/16 08/02/16 08/03/16 08/03/16 08/03/16 07:00 15:00 23:00 07:00 15:00 23:00 Intake Total 240 ml 1018 ml 100 ml Balance 240 ml 1018 ml 100 ml Intake Oral 240 ml 240 ml IV Total 778 ml Other 100 ml # Voids 2 4 3 3 # Bowel Movements 1 3 3 3 Laboratory Laboratory Tests Test 08/03/16 08/03/16 08:02 08:09 Ammonia 25 White Blood Count 13.1 Red Blood Count 3.03 Hemoglobin 9.8 Hematocrit 29.4 Mean Corpuscular Volume 97.2 Mean Corpuscular Hemoglobin 32.5 Mean Corpuscular Hemoglobin 33.5 Concent Red Cell Distribution Width 18.8 Platelet Count 183 Mean Platelet Volume 7.5 Neutrophils (%) (Auto) 87.1 Lymphocytes (%) (Auto) 3.4 Monocytes (%) (Auto) 9.4 Eosinophils (%) (Auto) 0.0 Basophils (%) (Auto) 0.1 Neutrophils # (Auto) 11.4 Lymphocytes # (Auto) 0.4 Monocytes # (Auto) 1.2 Eosinophils # (Auto) 0.0 Basophils # (Auto) 0.0 CBC Comment DIFF FINAL Differential Comment Sodium Level 138 Potassium Level 3.6 Chloride Level 110 Carbon Dioxide Level 18.8 Anion Gap 9 Blood Urea Nitrogen 12 Creatinine 0.74 Estimat Glomerular Filtration 82 Rate Random Glucose 125 Calcium Level 7.7 Phosphorus Level 3.5 Date/Time Procedure Status Source Growth 08/01/16 13:45 Cryptosporidium Exam Resulted Stool Stool Pending 08/01/16 13:45 Stool Pus (LOS) - Final Resulted Stool Stool NO WBC'S SEEN 08/01/16 13:45 Giardia Antigen (LOS) Resulted Stool Stool Pending 08/01/16 13:45 - Final Complete Stool Stool Norovirus 07/31/16 05:00 Urine Culture - Final Complete Urine Catheterized Urine Escherichia Coli Physical Exam HEENT: Pupils round and reactive to light; normocephalic; large ecchymosis on her face from truma ; no jaundice. Throat is clear. NECK: Neck is supple, no JVD, no lymphadenopathy. CHEST: Chest is clear to auscultation and percussion. CARDIAC: Regular rate and rhythm with no murmur gallop or rubs. ABDOMEN: Soft, nondistended, nontender; no hepatosplenomegaly; bowel sounds are present in all four quadrants. EXTREMITIES: No clubbing, cyanosis, or edema. SKIN: Normal; no rash; no jaundice. QUALITY CONTROL AUDITOR: No focal deficits; alert and oriented times three. Assessment and Plan Plan - New diagnosis of cirrhosis (MELD 10)- PMH of Alcohol Abuse and Tobacco Abuse who is brought to the ER by Daughter secondary to AMS and recurrent falls. Patient had a fall a week ago and suffered facial trauma, for which she did not seek medical attention at the time. GI services have been consulted for cirrhosis and hepatic encephalopathy. Patient is bad historian but able to provide some history, she denies abdominal pain, nausea, vomiting, hematemesis , melena, hematochezia, diarrhea, fever, chills, or SOB. On arrival, Platelets 124, no previous labs for comparison. Hgb 9.5. Na 122. K+ 2.8. Ammonia 80. INR 1.4. AST 79, Bili of 3.8, rest normal. Alcohol negative. CT of abd/pelvis showed Cirrhosis with mild ascites, Cholelithiasis, Right basilar atelectasis versus pneumonia. CXR with no acute findings. CT Head with no acute pathology. Patient denies previous knowledge of cirrhosis. - Hepatic encephalopathy- ammonia of 80, lactulose - AMS/recurrent falls. most likely multi factorial, electrolyte abnormalities, high ammonia, improving - Anemia- No active bleeding reported, hgb 10.5, Hgb was 9.5 on admission - Electrolyte abnormalities, hyponatremia, hypokalemia per attending - Leukocytosis- Resolved - ANN- improving - Alcohol abuse- counseled on cessation 08-03-16 doing ok, more awake, today, most likely AMS related to ETOH and high ammonia, EGD showed gastropathy Bx done, nodule mucosa in the duodenal bulb Bx done, multiple rings in esophagus very tight C/W eosinophilic esophagitis Bx was done, no dilation done. Plan: - low salt diet clear liquid today for colonoscopy in am - immunology and serology, AFP pending - colonoscopy in am - Alcohol cessation - Monitor labs - Monitor hh - cont. lactulose - Supportive care - PPI - if Bx positive for eosinophilic esophagitis then she will need steroid inhalers Kacey Orta MD Aug 03, 2016 09:46
[2016-08-03 10:00] VITALS: BP 131/73; PULSE 82; RESP 18; TEMP 96.1; O2SAT 95
[2016-08-03] MEDS: THIAMINE HCL 100 MG TAB PO SCH (10:13)
[2016-08-03] MEDS: LACTOBACILLUS ACIDOPHILUS TAB PO SCH ×2 (10:13→22:00)
[2016-08-03] MEDS: PANTOPRAZOLE SOD 40 MG DELAYED RELEASE TAB PO SCH (10:13)
[2016-08-03] MEDS: POTASSIUM PHOSPHATE MONOBASIC 500 MG TAB PO SCH (10:13)
[2016-08-03] MEDS: LACTULOSE SYRUP 20 GM/30 ML CUP PO SCH ×4 (10:13→22:01)
[2016-08-03] MEDS: SODIUM CHLORIDE 0.9% FLUSH 5 ML FLUSH FLUSH SCH ×2 (10:14→22:00)
[2016-08-03 10:32] LABS: ANA SCREEN POS (NEG)
[2016-08-03 12:00] VITALS: BP 122/78; PULSE 71; RESP 16; O2SAT 100
[2016-08-03] MEDS: FERROUS SULFATE 325 MG (65 MG ELEMENTAL IRON) TAB PO SCH ×2 (12:10→16:28)
[2016-08-03] MEDS ORDERED: PEG (High)/E-LYTE SOLN 4000 ML BTL PO ONE (15:00)
[2016-08-03 16:00] VITALS: BP 129/62; PULSE 74; RESP 16; TEMP 96.8; O2SAT 98
[2016-08-04] VITALS (10 sets, daily range): BP systolic 109–145; BP diastolic 61–85; PULSE 60–101; RESP 17–20; TEMP 97.4–98; O2SAT 95–98
[2016-08-04] MEDS: LEVOFLOXACIN 750 MG PREMIX INJ 150 ML IV SCH (00:52)
[2016-08-04] MEDS: MULTIVITAMIN INJ 10 ML, FOLIC ACID INJ 1 MG in SODIUM CHLORID 0.9% 500 ML INJ 500 ML IV SCH (02:27)
[2016-08-04] MEDS: SODIUM CHLOR 0.9% 1000 ML INJ 1,000 ML IV SCH ×2 (02:35→21:00)
[2016-08-04] MEDS: methylPREDNISolone SOD SUCC 40 MG/1 ML VIAL IV PUSH SCH ×3 (05:46→22:24)
[2016-08-04] MEDS: RESP: ALBUTEROL 2.5 MG/IPRATROPIUM 0.5 MG NEB (SCH) NEB ×3 (08:55→19:42)
[2016-08-04] MEDS: LACTULOSE SYRUP 20 GM/30 ML CUP PO SCH ×4 (09:00→22:29)
[2016-08-04] MEDS ORDERED: PROPOFOL 200 MG/20 ML AMP IV ONE (09:17)
--- NOTE | 2016-08-04 09:44 | HHI.GIFU ---
Subjective Remarks doing ok, no new complains, no abdominal pain, no sign of bleed. Objective Vitals I&O Vital Signs Date Time Temp Pulse Resp B/P Pulse Ox O2 Delivery O2 Flow Rate FiO2 08/04/16 08:50 97.4 65 20 135/85 95 08/04/16 08:43 97.4 65 18 135/85 95 08/04/16 04:00 97.4 72 18 122/69 98 08/04/16 02:07 79 08/04/16 00:00 98.0 77 17 135/85 98 08/03/16 16:00 96.8 74 16 129/62 98 08/03/16 12:00 71 16 122/78 100 08/03/16 10:00 96.1 82 18 131/73 95 I/O 08/03/16 08/03/16 08/03/16 08/04/16 08/04/16 08/04/16 07:00 15:00 23:00 07:00 15:00 23:00 Intake Total 600 ml 1839 ml 480 ml 1785 ml Balance 600 ml 1839 ml 480 ml 1785 ml Intake Oral 600 ml 480 ml IV Total 1739 ml 1785 ml Other 100 ml # Voids 5 1 5 # Bowel Movements 5 1 4 Laboratory Laboratory Tests Test 08/04/16 07:10 Phosphorus Level 3.7 Ammonia 26 Date/Time Procedure Status Source Growth 08/01/16 13:45 Cryptosporidium Exam - Final Complete Stool Stool NEGATIVE - NO CRYPTOSPORIDIUM ANTIGEN... 08/01/16 13:45 Stool Pus (LOS) - Final Complete Stool Stool NO WBC'S SEEN 08/01/16 13:45 Giardia Antigen (LOS) - Final Complete Stool Stool NEGATIVE - NO GIARDIA ANTIGEN DETECTE... 08/01/16 13:45 - Final Complete Stool Stool Norovirus 07/31/16 05:00 Urine Culture - Final Complete Urine Catheterized Urine Escherichia Coli Physical Exam HEENT: Pupils round and reactive to light; normocephalic; large ecchymosis on her face from truma ; no jaundice. Throat is clear. NECK: Neck is supple, no JVD, no lymphadenopathy. CHEST: Chest is clear to auscultation and percussion. CARDIAC: Regular rate and rhythm with no murmur gallop or rubs. ABDOMEN: Soft, nondistended, nontender; no hepatosplenomegaly; bowel sounds are present in all four quadrants. EXTREMITIES: No clubbing, cyanosis, or edema. SKIN: Normal; no rash; no jaundice. [employer]: No focal deficits; alert and oriented times three. Assessment and Plan Plan - New diagnosis of cirrhosis (MELD 10)- PMH of Alcohol Abuse and Tobacco Abuse who is brought to the ER by Daughter secondary to AMS and recurrent falls. Patient had a fall a week ago and suffered facial trauma, for which she did not seek medical attention at the time. GI services have been consulted for cirrhosis and hepatic encephalopathy. Patient is bad historian but able to provide some history, she denies abdominal pain, nausea, vomiting, hematemesis , melena, hematochezia, diarrhea, fever, chills, or SOB. On arrival, Platelets 124, no previous labs for comparison. Hgb 9.5. Na 122. K+ 2.8. Ammonia 80. INR 1.4. AST 79, Bili of 3.8, rest normal. Alcohol negative. CT of abd/pelvis showed Cirrhosis with mild ascites, Cholelithiasis, Right basilar atelectasis versus pneumonia. CXR with no acute findings. CT Head with no acute pathology. Patient denies previous knowledge of cirrhosis. - Hepatic encephalopathy- ammonia of 80, lactulose - AMS/recurrent falls. most likely multi factorial, electrolyte abnormalities, high ammonia, improving - Anemia- No active bleeding reported, hgb 10.5, Hgb was 9.5 on admission - Electrolyte abnormalities, hyponatremia, hypokalemia per attending - Leukocytosis- Resolved - ANN- improving - Alcohol abuse- counseled on cessation 08-03-16 doing ok, more awake, today, most likely AMS related to ETOH and high ammonia, EGD showed gastropathy Bx done, nodule mucosa in the duodenal bulb Bx done, multiple rings in esophagus very tight C/W eosinophilic esophagitis Bx was done, no dilation done. 08-04-16 doing well today, had colonoscopy showed 4 large polyps removed by snare. cirrhosis no active bleed still jaundiced Plan: - low salt diet clear liquid today for colonoscopy in am - repeat LFTs and CBC in am - Alcohol cessation - Monitor labs - Monitor hh - cont. lactulose - Supportive care - PPI - if Bx positive for eosinophilic esophagitis then she will need steroid inhalers Kacey Orta MD Aug 04, 2016 09:44
[2016-08-04] MEDS: FERROUS SULFATE 325 MG (65 MG ELEMENTAL IRON) TAB PO SCH ×2 (10:45→16:58)
[2016-08-04] MEDS: SODIUM CHLORIDE 0.9% FLUSH 5 ML FLUSH FLUSH SCH ×2 (10:45→22:29)
[2016-08-04] MEDS: POTASSIUM PHOSPHATE MONOBASIC 500 MG TAB PO SCH (10:45)
[2016-08-04] MEDS: LACTOBACILLUS ACIDOPHILUS TAB PO SCH ×2 (10:45→22:21)
[2016-08-04] MEDS: THIAMINE HCL 100 MG TAB PO SCH (10:45)
[2016-08-04] MEDS: PANTOPRAZOLE SOD 40 MG DELAYED RELEASE TAB PO SCH (10:45)
--- NOTE | 2016-08-04 14:41 | HHI.PR ---
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 Patient says she still has diarrhea many times. No fever or chills. No n/v. Plan for colonoscopy today Objective Vitals Vital Signs Date Time Temp Pulse Resp B/P Pulse Ox O2 Delivery O2 Flow Rate FiO2 08/04/16 12:00 97.5 72 18 145/73 96 08/04/16 09:48 73 16 137/83 98 08/04/16 09:43 87 16 135/80 97 08/04/16 09:38 96.5 75 16 135/81 98 08/04/16 08:50 97.4 65 20 135/85 95 08/04/16 08:43 97.4 65 18 135/85 95 08/04/16 08:02 60 08/04/16 04:00 97.4 72 18 122/69 98 08/04/16 02:07 79 08/04/16 00:00 98.0 77 17 135/85 98 08/03/16 16:00 96.8 74 16 129/62 98 I/O 08/03/16 08/03/16 08/03/16 08/04/16 08/04/16 08/04/16 07:00 15:00 23:00 07:00 15:00 23:00 Intake Total 600 ml 1839 ml 480 ml 2600 ml Balance 600 ml 1839 ml 480 ml 2600 ml Intake Oral 600 ml 480 ml IV Total 1739 ml 2600 ml Other 100 ml # Voids 5 1 5 # Bowel Movements 5 1 4 Result Diagram: 08/03/16 0809 08/03/16 0809 Imaging Last Impressions Head CT 07/30/162116 Signed Impressions: Service Date/Time: July 22:58 - CONCLUSION: 1. No evidence of acute intracranial pathology. No masses are identified. Zheng Bourgeois MD Chest X-Ray 07/30/162116 Signed Impressions: Service Date/Time: July 21:29 - CONCLUSION: No definite acute abnormality is seen. Santi Abreu MD Abdomen/Pelvis CT 07/30/162116 Signed Impressions: Service Date/Time: July 23:04 - CONCLUSION: 1. No evidence of acute abdominal or pelvic process. No masses are identified. 2. Cirrhosis with mild ascites 3. Cholelithiasis 4. Right basilar atelectasis versus pneumonia Zheng Bourgeois MD Maxillofacial CT 07/30/16 0000 Signed Impressions: Service Date/Time: July 23:00 - CONCLUSION: 1. There is no evidence of acute fracture. Zheng Bourgeois MD Foot X-Ray 07/30/16 0000 Signed Impressions: Service Date/Time: July 21:31 - CONCLUSION: No acute disease. Santi Abreu MD Cervical Spine CT 07/30/16 0000 Signed Impressions: Service Date/Time: July 23:00 - CONCLUSION: Reversal of the normal cervical lordosis. There is no evidence of acute fracture. Moderate degenerative as above Zheng Bourgeois MD Objective Remarks GENERAL: 51 yo female, appearing older than the stated age, appearing ill. SKIN: Warm and dry. HEAD: Atraumatic. Normocephalic. EYES: Pupils equal and round. No scleral icterus. No injection or drainage. ENT: No nasal bleeding or discharge. Mucous membranes pink and moist. NECK: Trachea midline. No JVD. CARDIOVASCULAR: Regular rate and rhythm. RESPIRATORY: No accessory muscle use. Clear to auscultation. Breath sounds equal bilaterally. GASTROINTESTINAL: Abdomen soft, non-tender, nondistended. Hepatic and splenic margins not palpable. MUSCULOSKELETAL: Extremities without clubbing, cyanosis, or edema. No obvious deformities. NEUROLOGICAL: Awake and alert. No obvious cranial nerve deficits. Motor grossly within normal limits. Five out of 5 muscle strength in the arms and legs. Normal speech. PSYCHIATRIC: Appropriate mood and affect; insight and judgment normal. A/P Problem List: (1) Hepatic encephalopathy ICD Code: K72.90 Status: Acute (2) Alcohol abuse ICD Code: F10.10 Status: Acute (3) Hyponatremia ICD Code: E87.1 Status: Acute (4) Hypokalemia ICD Code: E87.6 Status: Acute (5) Thrombocytopenia ICD Code: D69.6 Status: Acute (6) Neutrophilia ICD Code: D72.9 Status: Acute Assessment and Plan Hepatic Encephalopathy Elevated ammonia (80 on admission),on lactulose New diagnosis of cirrhosis (MELD 10) +Cirrhosis w/ mild ascites. Continue IV Levaquin for possible UTI, SBP or early PNA. H/o Alcohol Abuse/tobacco abuse, now w/ recurrent falls and increased confusion. CT Head/C-Spine negative for acute findings, CT Maxillofacial negative, images reviewed by me. Ammonia 80 at admission. Continue w/ Lactulose. Monitor ammonia level. Trending down. CT Abd/Pelvis w/ cirrhosis, mild ascites. 08/03 S/P EGD most likely AMS related to ETOH and high ammonia, EGD showed gastropathy. Bx done, nodule mucosa in the duodenal bulb Bx done, multiple rings in esophagus very tight C/W eosinophilic esophagitis Bx was done, no dilation done. Per PEDRO Orta if Bx positive for eosinophilic esophagitis then she will need steroid inhalers Plan for colonoscopy 08/04 Alcohol Abuse: Drinks daily, however Alcohol negative. Seizure Precautions, CIWA Protocol, MVT/Thiamine/Folate replacement. Counselled. Tobacco use. Nicotine patch. Counselled. Hyponatremia: Na 122 on admission. Likely secondary to dehydration and Alcohol Abuse, IVF. Na improving. Monitor Na level. Hypokalemia: K+ 2.8 on admission, replace with IV and PO if tolerates, recheck and replace as needed. Thrombocytopenia: Platelets 124, no previous labs for comparison, likely secondary to long-standing alcohol abuse. No active bleeding, repeat labs in am. Monitor closely in light of coagulopathy. Neutrophilia: WBC 10.8, however neutrophils 76 w/ toxic granulation concerning for underlying infection. CXR negative for acute findings, images reviewed by me, however occasional wet cough. UA concerning of UTI. U cx pending. Diarrhea. Check C diff negative. Check stool studies. Start lactinex. Stool with Norovirus positive. ID control was notified spoke with Myra. Keep isolated. Keep hydrated, continue IVF. 08/03 S/P EGD as above, plan for colonoscopy DVT Prophylaxis: Pharmacologic contraindication secondary to thrombocytopenia and elevated INR of 1.4 CM for d/c planning as needed. Discussed with the patient and the nurse. DC when improved and cleared by consultants. Althea Baptiste MD Aug 04, 2016 14:41
[2016-08-05] VITALS: BP 106/71; PULSE 78; RESP 18; TEMP 97.1; O2SAT 98
[2016-08-05] MEDS: LEVOFLOXACIN 750 MG PREMIX INJ 150 ML IV SCH (00:49)
[2016-08-05 04:00] VITALS: BP 100/63; PULSE 73; RESP 18; TEMP 96.3; O2SAT 97
[2016-08-05] MEDS: SODIUM CHLOR 0.9% 1000 ML INJ 1,000 ML IV SCH (05:45)
[2016-08-05] MEDS: methylPREDNISolone SOD SUCC 40 MG/1 ML VIAL IV PUSH SCH (05:45)
[2016-08-05 07:37] LABS: AUTOMATED NEUTROPHIL # 11.7 TH/MM3 (1.8-7.7); BASOPHIL % 0.1 % (0.0-2.0); HEMATOCRIT 29.1 % (35.0-46.0); HEMO FLAGS DIFF FINAL; LYMPH % 2.3 % (9.0-44.0); LYMPHOCYTE # 0.3 TH/MM3 (1.0-4.8); MEAN CELL VOLUME 97.4 FL (80.0-100.0); MEAN CORPUSCULAR HEMOGLOBIN 32.4 PG (27.0-34.0); MEAN CORPUSCULAR HGB CONC 33.2 % (32.0-36.0); MONO % 9.5 % (0.0-8.0); NEUT % 88.1 % (16.0-70.0); PLATELET COUNT 161 TH/MM3 (150-450); RED BLOOD COUNT 2.99 MIL/MM3 (4.00-5.30); RED CELL DISTRIBUTION WIDTH 18.5 % (11.6-17.2); WHITE BLOOD COUNT 13.2 TH/MM3 (4.0-11.0)
[2016-08-05 07:50] VITALS: BP 102/65; PULSE 70; RESP 20; TEMP 97.4; O2SAT 97
[2016-08-05 08:01] LABS: INDIRECT BILIRUBIN 0.6 MG/DL (0.0-0.8); TOTAL BILIRUBIN ADULT 1.8 MG/DL (0.2-1.0)
--- NOTE | 2016-08-05 08:06 | HHI.PR ---
Subjective Remarks Feels much better. less diarrhea. Eating well. No fever or chills. No tremors. Discussed with the family at bedside as well, her daughter. Objective Vitals Vital Signs Date Time Temp Pulse Resp B/P Pulse Ox O2 Delivery O2 Flow Rate FiO2 08/05/16 04:00 96.3 73 18 100/63 97 08/05/16 00:00 97.1 78 18 106/71 98 08/04/16 22:20 77 08/04/16 20:00 97.4 74 18 111/74 97 08/04/16 16:00 97.6 101 18 109/61 95 08/04/16 12:00 97.5 72 18 145/73 96 08/04/16 09:48 73 16 137/83 98 08/04/16 09:43 87 16 135/80 97 08/04/16 09:38 96.5 75 16 135/81 98 08/04/16 08:50 97.4 65 20 135/85 95 08/04/16 08:43 97.4 65 18 135/85 95 I/O 08/04/16 08/04/16 08/04/16 08/05/16 08/05/16 08/05/16 07:00 15:00 23:00 07:00 15:00 23:00 Intake Total 2840 ml 2223 ml Balance 2840 ml 2223 ml Intake Oral 240 ml 680 ml IV Total 2600 ml 1543 ml # Voids 5 3 2 # Bowel Movements 4 1 1 Result Diagram: 08/05/16 0703 08/03/16 0809 Objective Remarks GENERAL: 51 yo female, appearing older than the stated age, appearing ill. SKIN: Warm and dry. HEAD: Atraumatic. Normocephalic. EYES: Pupils equal and round. No scleral icterus. No injection or drainage. ENT: No nasal bleeding or discharge. Mucous membranes pink and moist. NECK: Trachea midline. No JVD. CARDIOVASCULAR: Regular rate and rhythm. RESPIRATORY: No accessory muscle use. Clear to auscultation. Breath sounds equal bilaterally. GASTROINTESTINAL: Abdomen soft, non-tender, nondistended. Hepatic and splenic margins not palpable. MUSCULOSKELETAL: Extremities without clubbing, cyanosis, or edema. No obvious deformities. NEUROLOGICAL: Awake and alert. No obvious cranial nerve deficits. Motor grossly within normal limits. Five out of 5 muscle strength in the arms and legs. Normal speech. PSYCHIATRIC: Appropriate mood and affect; insight and judgment normal. A/P Problem List: (1) Hepatic encephalopathy ICD Code: K72.90 Status: Acute (2) Alcohol abuse ICD Code: F10.10 Status: Acute (3) Hyponatremia ICD Code: E87.1 Status: Acute (4) Hypokalemia ICD Code: E87.6 Status: Acute (5) Thrombocytopenia ICD Code: D69.6 Status: Acute (6) Neutrophilia ICD Code: D72.9 Status: Acute Assessment and Plan Hepatic Encephalopathy Elevated ammonia (80 on admission),on lactulose New diagnosis of cirrhosis (MELD 10) +Cirrhosis w/ mild ascites. Continue IV Levaquin for possible UTI, SBP or early PNA. H/o Alcohol Abuse/tobacco abuse, now w/ recurrent falls and increased confusion. CT Head/C-Spine negative for acute findings, CT Maxillofacial negative, images reviewed by me. Ammonia 80 at admission. Continue w/ Lactulose. Monitor ammonia level. Trending down. CT Abd/Pelvis w/ cirrhosis, mild ascites. 08/03 S/P EGD most likely AMS related to ETOH and high ammonia, EGD showed gastropathy. Bx done, nodule mucosa in the duodenal bulb Bx done, multiple rings in esophagus very tight C/W eosinophilic esophagitis Bx was done, no dilation done. Per PEDRO Orta if Bx positive for eosinophilic esophagitis then she will need steroid inhalers Plan for colonoscopy 08/04 Alcohol Abuse: Drinks daily, however Alcohol negative. Seizure Precautions, CIWA Protocol, MVT/Thiamine/Folate replacement. Counselled. Tobacco use. Nicotine patch. Counselled. Hyponatremia: Na 122 on admission. Likely secondary to dehydration and Alcohol Abuse, IVF. Na improving. Monitor Na level. Hypokalemia: K+ 2.8 on admission, replace with IV and PO if tolerates, recheck and replace as needed. Thrombocytopenia: Platelets 124, no previous labs for comparison, likely secondary to long-standing alcohol abuse. No active bleeding, repeat labs in am. Monitor closely in light of coagulopathy. Neutrophilia: WBC 10.8, however neutrophils 76 w/ toxic granulation concerning for underlying infection. CXR negative for acute findings, images reviewed by me, however occasional wet cough. UA concerning of UTI. U cx pending. Diarrhea. Check C diff negative. Check stool studies. Start lactinex. Stool with Norovirus positive. ID control was notified spoke with Myra. Keep isolated. Keep hydrated, continue IVF. 08/03 S/P EGD as above, plan for colonoscopy DVT Prophylaxis: Pharmacologic contraindication secondary to thrombocytopenia and elevated INR of 1.4 CM for d/c planning as needed. Discussed with the patient and the nurse. DC today at [facility], patient improved and cleared by consultants. Discused with the patient family nurse, GI specialist Dr Tavera, Althea Jasso MD Aug 05, 2016 08:06
[2016-08-05] MEDS: THIAMINE HCL 100 MG TAB PO SCH (08:32)
[2016-08-05] MEDS: LACTOBACILLUS ACIDOPHILUS TAB PO SCH (08:32)
[2016-08-05] MEDS: SODIUM CHLORIDE 0.9% FLUSH 5 ML FLUSH FLUSH SCH (08:32)
[2016-08-05] MEDS: PANTOPRAZOLE SOD 40 MG DELAYED RELEASE TAB PO SCH (08:32)
[2016-08-05] MEDS: LACTULOSE SYRUP 20 GM/30 ML CUP PO SCH (08:32)
[2016-08-05] MEDS ORDERED: PRED10PA PO (09:23)
[2016-08-05] MEDS ORDERED: VITA100T2 PO (09:23)
[2016-08-05] MEDS ORDERED: VENTAER INH (09:23)
[2016-08-05] MEDS ORDERED: PULM90IN INH (09:23)
[2016-08-05] MEDS ORDERED: FERR325T PO (09:23)
--- NOTE | 2016-08-05 09:23 | HHI.DS ---
Discharge Summary Admission Date Jul 31, 2016 at 00:45 Discharge Date: Aug 05, 2016 Admitting Diagnosis Hepatic encephalopathy, hypokalemia, hyponatremia (1) Hepatic encephalopathy ICD Code: K72.90 Diagnosis: Principal (2) Alcohol abuse ICD Code: F10.10 Diagnosis: Principal (3) Hyponatremia ICD Code: E87.1 Diagnosis: Principal (4) Hypokalemia ICD Code: E87.6 Diagnosis: Principal (5) Thrombocytopenia ICD Code: D69.6 Diagnosis: Principal (6) Neutrophilia ICD Code: D72.9 Procedures egd, colonoscopy Brief History - From Admission This is a 51-year-old female with a PMH of Alcohol Abuse and Tobacco Abuse who is brought to the ER by Daughter secondary to AMS and recurrent falls. Daughter lives up in [place], however drove down to see patient and noted her to be significantly confused w/ multiple falls. S/p fall 1wk ago w/ head/facial trauma, did not seek medical attention at that time. Pt also w/ auditory/visual hallucinations. Pt w/ vague complaints of abdominal pain and bilateral foot pain, but denies fever, chills, SOB, nausea, vomiting or diarrhea. On arrival, BP 133/63, HR 99, O2 sat 98% on RA, Afebrile. WBC 10.8, neutrophils 76, +toxic granulation. Platelets 124, no previous labs for comparison. Hgb 9.5. Na 122. K+ 2.8. Ammonia 80. INR 1.4. Alcohol negative. CXR with no acute findings. CT Head with no acute pathology. CT C- spine no acute fracture. Bilateral Foot X-ray negative. CT Maxillofacial no acute fracture. CBC/BMP: 08/05/16 0703 08/03/16 0809 Significant Findings Laboratory Tests Test 08/03/16 08/05/16 08:09 07:03 White Blood Count 13.1 TH/MM3 13.2 TH/MM3 (4.0-11.0) (4.0-11.0) Red Blood Count 3.03 MIL/MM3 2.99 MIL/MM3 (4.00-5.30) (4.00-5.30) Hemoglobin 9.8 GM/DL 9.7 GM/DL (11.6-15.3) (11.6-15.3) Hematocrit 29.4 % 29.1 % (35.0-46.0) (35.0-46.0) Red Cell Distribution Width 18.8 % 18.5 % (11.6-17.2) (11.6-17.2) Neutrophils (%) (Auto) 87.1 % 88.1 % (16.0-70.0) (16.0-70.0) Lymphocytes (%) (Auto) 3.4 % 2.3 % (9.0-44.0) (9.0-44.0) Monocytes (%) (Auto) 9.4 % (0.0-8.0) 9.5 % (0.0-8.0) Neutrophils # (Auto) 11.4 TH/MM3 11.7 TH/MM3 (1.8-7.7) (1.8-7.7) Lymphocytes # (Auto) 0.4 TH/MM3 0.3 TH/MM3 (1.0-4.8) (1.0-4.8) Monocytes # (Auto) 1.2 TH/MM3 1.3 TH/MM3 (0-0.9) (0-0.9) Chloride Level 110 MEQ/L (98-107) Carbon Dioxide Level 18.8 MEQ/L (21.0-32.0) Estimat Glomerular Filtration 82 ML/MIN (>89) Rate Random Glucose 125 MG/DL (74-106) Calcium Level 7.7 MG/DL (8.5-10.1) Total Bilirubin 1.8 MG/DL (0.2-1.0) Direct Bilirubin 1.2 MG/DL (0.0-0.2) Aspartate Amino Transf 67 U/L (15-37) (AST/SGOT) Alanine Aminotransferase 63 U/L (10-53) (ALT/SGPT) Total Protein 5.9 GM/DL (6.4-8.2) Albumin 1.9 GM/DL (3.4-5.0) Imaging Last Impressions Head CT 07/30/16 6481 Signed Impressions: Service Date/Time: July 22:58 - CONCLUSION: 1. No evidence of acute intracranial pathology. No masses are identified. Zheng Bourgeois MD Chest X-Ray 07/30/162116 Signed Impressions: Service Date/Time: July 21:29 - CONCLUSION: No definite acute abnormality is seen. Santi Abreu MD Abdomen/Pelvis CT 07/30/162116 Signed Impressions: Service Date/Time: July 23:04 - CONCLUSION: 1. No evidence of acute abdominal or pelvic process. No masses are identified. 2. Cirrhosis with mild ascites 3. Cholelithiasis 4. Right basilar atelectasis versus pneumonia Zheng Bourgeois MD Maxillofacial CT 07/30/16 Signed Impressions: Service Date/Time: July 23:00 - CONCLUSION: 1. There is no evidence of acute fracture. Zheng Bourgeois MD Foot X-Ray 07/30/16 Signed Impressions: Service Date/Time: July 21:31 - CONCLUSION: No acute disease. Santi Abreu MD Cervical Spine CT 07/30/16 0000 Signed Impressions: Service Date/Time: July 23:00 - CONCLUSION: Reversal of the normal cervical lordosis. There is no evidence of acute fracture. Moderate degenerative as above Zheng Bourgeois MD PE at Discharge GENERAL: 51 yo female, appearing older than the stated age, appearing ill. SKIN: Warm and dry. HEAD: Atraumatic. Normocephalic. EYES: Pupils equal and round. No scleral icterus. No injection or drainage. ENT: No nasal bleeding or discharge. Mucous membranes pink and moist. NECK: Trachea midline. No JVD. CARDIOVASCULAR: Regular rate and rhythm. RESPIRATORY: No accessory muscle use. Clear to auscultation. Breath sounds equal bilaterally. GASTROINTESTINAL: Abdomen soft, non-tender, nondistended. Hepatic and splenic margins not palpable. MUSCULOSKELETAL: Extremities without clubbing, cyanosis, or edema. No obvious deformities. NEUROLOGICAL: Awake and alert. No obvious cranial nerve deficits. Motor grossly within normal limits. Five out of 5 muscle strength in the arms and legs. Normal speech. PSYCHIATRIC: Appropriate mood and affect; insight and judgment normal. Hospital Course Hepatic Encephalopathy Elevated ammonia (80 on admission),on lactulose New diagnosis of cirrhosis (MELD 10) +Cirrhosis w/ mild ascites. Continue IV Levaquin for possible UTI, SBP or early PNA. H/o Alcohol Abuse/tobacco abuse, now w/ recurrent falls and increased confusion. CT Head/C-Spine negative for acute findings, CT Maxillofacial negative, images reviewed by me. Ammonia 80 at admission. Continue w/ Lactulose. Monitor ammonia level. Trending down. CT Abd/Pelvis w/ cirrhosis, mild ascites. 08/03 S/P EGD most likely AMS related to ETOH and high ammonia, EGD showed gastropathy. Bx done, nodule mucosa in the duodenal bulb Bx done, multiple rings in esophagus very tight C/W eosinophilic esophagitis Bx was done, no dilation done. Per PEDRO Orta if Bx positive for eosinophilic esophagitis then she will need steroid inhalers S/P colonoscopy 08/04. Patient has polyps removed. To follow up as OP with GI Alcohol Abuse: Drinks daily, however Alcohol negative. Seizure Precautions, CIWA Protocol, MVT/Thiamine/Folate replacement. Counselled. Tobacco use. Nicotine patch. Counselled. Hyponatremia: Na 122 on admission. Likely secondary to dehydration and Alcohol Abuse, IVF. Na improving. Monitor Na level. Hypokalemia: K+ 2.8 on admission, replace with IV and PO if tolerates, recheck and replace as needed. Thrombocytopenia: Platelets 124, no previous labs for comparison, likely secondary to long-standing alcohol abuse. No active bleeding, repeat labs in am. Monitor closely in light of coagulopathy. Neutrophilia: WBC 10.8, however neutrophils 76 w/ toxic granulation concerning for underlying infection. CXR negative for acute findings, images reviewed by me, however occasional wet cough. UA concerning of UTI. U cx pending. Diarrhea. Check C diff negative. Check stool studies. Start lactinex. Stool with Norovirus positive. ID control was notified spoke with Myra. Keep isolated. Keep hydrated, continue IVF. 08/03 S/P EGD as above, plan for colonoscopy DVT Prophylaxis: Pharmacologic contraindication secondary to thrombocytopenia and elevated INR of 1.4 Patient improved, cleared for dc , to follow up as OP with Pcp and consultants. Patient to follow up as [facility]. Pt Condition on Discharge: Stable Discharge Disposition: Discharge Home Discharge Time: <= 30 minutes Discharge Instructions DIET: Follow Instructions for: As Tolerated, No Restrictions Activities you can perform: Regular-No Restrictions Follow up Referrals: Gastroenterology - 2 Weeks PCP Follow-up - 3-5 Days with Sonja Walker MD New Medications: Albuterol 18 GM Inh (Ventolin Hfa 18 GM Inh) 90 Mcg/Act Aer 2 PUFF INH Q4-6H PRN SHORTNESS OF BREATH #1 Ref 0 INHALER Budesonide Powder Inh (Pulmicort Flexhaler) 90 Mcg/Act Inhp 90 MCG INH Q12HR Asthma Management #1 Ref 0 INHALER Ciprofloxacin (Ciprofloxacin) 250 Mg Tab 250 MG PO BID Infection #6 Ref 0 TAB Lactobacillus Acidophilus (Lactinex) 1 Chew 1 TAB CHEW DAILY Nutritional Supplement #15 Ref 0 TAB Prednisone (21) 10 mg tab Dose Pack (Prednisone (21) 10 mg tab Dose Pack) 10 Mg Pack 10 MG PO DIRECTED Inflammation #1 Ref 0 DSPK Ferrous Sulfate (Ferrous Sulfate) 325 Mg Tab 325 MG PO BID@12,17 anemia #30 TAB Thiamine (Vitamin B-1) 100 Mg Tab 100 MG PO DAILY multivitam #30 TAB Althea Baptiste MD Aug 05, 2016 09:23
[2016-08-05] MEDS ORDERED: CIPR250T2 PO (09:25)
[2016-08-05] MEDS ORDERED: LACTCHW3 CHEW (09:25)
[2016-08-05] MEDS ORDERED: OXYGENTANK NAS.CANULA (14:38)
[2016-08-05] MEDS ORDERED: methylPREDNISolone SOD SUCC 40 MG/1 ML VIAL IV PUSH SCH (21:00)
[2016-08-06 03:52] LABS: MITOCHONDRIAL ABS LESS THAN 20.0 U (())
== END 2016-08-05 15:23 | disposition home or self-care (01) | DRG 442 ==
LOC: NEPC 19:52 → NEDA 07-31 00:45 → NEDH 07-31 04:45 → HOCB 07-31 13:35 → UNDODISIN 08-05 12:16
PROVIDERS: ADMIT Hospitalist; ATTEND Hospitalist
PROC: 0DB98ZX Excision of Duodenum, Via Natural or Artificial Opening Endoscopic, Diagnostic (ICD-10-PCS; 2016-08-03)
PROC: 0DB68ZX Excision of Stomach, Via Natural or Artificial Opening Endoscopic, Diagnostic (ICD-10-PCS; 2016-08-03)
PROC: 0DB28ZX Excision of Middle Esophagus, Via Natural or Artificial Opening Endoscopic, Diagnostic (ICD-10-PCS; 2016-08-03)
PROC: 0DBN8ZX Excision of Sigmoid Colon, Via Natural or Artificial Opening Endoscopic, Diagnostic (ICD-10-PCS; 2016-08-04)
PROC: 0DBM8ZX Excision of Descending Colon, Via Natural or Artificial Opening Endoscopic, Diagnostic (ICD-10-PCS; principal; 2016-08-04 09:00)
DX: K72.90 Hepatic failure, unspecified without coma (principal); E87.1 Hypo-osmolality and hyponatremia; D69.59 Other secondary thrombocytopenia; R18.8 Other ascites; K22.2 Esophageal obstruction; E86.0 Dehydration; F17.210 Nicotine dependence, cigarettes, uncomplicated; E87.6 Hypokalemia; R19.7 Diarrhea, unspecified; F10.20 Alcohol dependence, uncomplicated; K74.60 Unspecified cirrhosis of liver; D12.4 Benign neoplasm of descending colon; D12.5 Benign neoplasm of sigmoid colon; K29.70 Gastritis, unspecified, without bleeding
CPT/HCPCS: 70450; 70486; 71010; 72125; 73630; 74177; 80048; 80053; 80074; 80076; 80307; 80320; 81001; 82103; 82105; 82140; 82390; 82550; 82552; 82728; 82948; 83520; 83540; 83550; 83735; 83935; 84100; 84443; 85007; 85025; 85027; 85610; 85730; 86038; 86039; 86256; 87077; 87086; 87186; 87205; 87328; 87329; 87493; 87506; 88305; 93005; 94640; 94664; 96374; 96375; J1956; J2920; J3411; J3480; J7030; J7040; J7050; Q9967

== ENCOUNTER 2016-08-20 22:51 | Emergency (ER) | payer OTHER ==
[~2016-08-20] VITALS: Ht 160 cm; Wt 59.0 kg
[~2016-08-20 22:51] MED LIST: CIPR250T2 PO; FERR325T PO; LACTCHW3 CHEW; PRED10PA PO; PULM90IN INH; VENTAER INH; VITA100T2 PO
[2016-08-20 22:53] VITALS: BP 106/58; PULSE 113; RESP 16; TEMP 98; O2SAT 99
--- NOTE | 2016-08-21 03:35 | PD ---
HPI Chief Complaint: Edema Time Seen by Provider: 03:12 Travel History International Travel<30 days: No Contact w/Intl Traveler<30days: No Traveled to known affect area: No History of Present Illness HPI The patient is a 51-year-old female who presents to the emergency department for abdominal swelling and bilateral lower abdominal swelling. The patient was recently hospitalized several weeks ago after a fall and generalized swelling, was diagnosed with cirrhosis. The patient underwent a paracentesis, however, now notes she is having increasing swelling of her abdomen as well as her lower extremities. The patient does have a history of alcohol use, states she no longer drinks alcohol. The patient denies any known history of hepatitis B or hepatitis C. She does complain of abdominal bloating and swelling with pain as well as bilateral lower extremity pain and swelling. The patient states that the ecchymosis to the face is approximately 3 weeks old and is not acute. The patient does not currently have a primary physician, states she does not have insurance and is unable to see a physician on a regular basis. PFSH Past Medical History Autoimmune Disease: No Anxiety: No Depression: No Cancer: No Cardiovascular Problems: Yes (MURMUR) Chemotherapy: No Cerebrovascular Accident: No Diabetes: No Endocrine: No GERD: No Genitourinary: No Hiatal Hernia: No Immune Disorder: No Kidney Stones: No Musculoskeletal: No Neurologic: No Psychiatric: No Reproductive: No Respiratory: No Integumentary: Yes (SKIN LUPUS) Migraines: No Radiation Therapy: No Renal Failure: No Seizures: No Thyroid Disease: No Ulcer: No Tetanus Vaccination: Unknown Influenza Vaccination: No ?: Not Menopausal: Yes : 1 Para: 1 Past Surgical History Abdominal Surgery: No AICD: No Arteriovenous Shunt: No Cardiac Surgery: No Section: Yes Ear Surgery: No Endocrine Surgery: No Eye Surgery: Yes (cataract) Genitourinary Surgery: No Gynecologic Surgery: Yes ( section) Insulin Pump: No Joint Replacement: No Oral Surgery: No Pacemaker: No Thoracic Surgery: No Social History Alcohol Use: No (07/30/16 stopped) Tobacco Use: Yes (07/30/16) Substance Use: No Allergies-Medications (Allergen,Severity, Reaction): Coded Allergies: Penicillin (Verified Allergy, Unknown, 08/21/16) Reported Meds & Prescriptions Reported Meds & Active Scripts Active Lactinex (Lactobacillus Acidophilus) 1 Chew 1 Tab CHEW DAILY Pulmicort Flexhaler (Budesonide Powder Inh) 90 Mcg/Act Inhp 90 Mcg INH Q12HR Ventolin Hfa 18 GM Inh (Albuterol Sulfate) 90 Mcg/Act Aer 2 Puff INH Q4-6H PRN Ferrous Sulfate 325 Mg Tab 325 Mg PO BID@12,17 Review of Systems Except as stated in HPI: all other systems reviewed are Neg General / Constitutional: No: Fever Cardiovascular: No: Chest Pain or Discomfort Respiratory: No: Shortness of Breath Gastrointestinal: Positive: Abdominal Pain, Other (as noted in the history of present illness), No: Nausea, Vomiting Musculoskeletal: Positive: Edema Physical Exam Narrative GENERAL: Awake, alert, 51-year-old female appears her stated age and is in no acute respiratory distress. SKIN: Warm and dry. HEAD: Old appearing ecchymosis over the left frontal face and periorbital area bilateral. EYES: No injection. ENT: No nasal bleeding or discharge. Mucous membranes pink and moist. NECK: Trachea midline. No JVD. CARDIOVASCULAR: Regular, tachycardic with a heart rate of 102. RESPIRATORY: No accessory muscle use. Clear to auscultation. Breath sounds equal bilaterally. GASTROINTESTINAL: Abdomen distended with a positive fluid wave. MUSCULOSKELETAL: Bilateral lower extremity pitting edema from the knee inferiorly. NEUROLOGICAL: Awake and alert. No obvious cranial nerve deficits. Motor grossly within normal limits. Normal speech. PSYCHIATRIC: Appropriate mood and affect; insight and judgment normal. Data Data Last Documented VS Vital Signs Date Time Temp Pulse Resp B/P Pulse Ox O2 Delivery O2 Flow Rate FiO2 08/21/16 03:41 85 18 108/55 100 Room Air 08/20/16 22:53 98.0 Orders Complete Blood Count With Diff (08/21/16 03:16) Comprehensive Metabolic Panel (08/21/16 03:16) Act Partial Throm Time (Ptt) (08/21/16 03:16) Prothrombin Time / Inr (Pt) (08/21/16 03:16) Ed Poc Ultrasound (08/21/16 ) Labs Laboratory Tests Test 08/21/16 03:35 White Blood Count 7.5 TH/MM3 Red Blood Count 3.15 MIL/MM3 Hemoglobin 10.6 GM/DL Hematocrit 31.1 % Mean Corpuscular Volume 98.7 FL Mean Corpuscular Hemoglobin 33.7 PG Mean Corpuscular Hemoglobin 34.1 % Concent Red Cell Distribution Width 17.4 % Platelet Count 155 TH/MM3 Mean Platelet Volume 7.8 FL Neutrophils (%) (Auto) 59.6 % Lymphocytes (%) (Auto) 18.9 % Monocytes (%) (Auto) 15.9 % Eosinophils (%) (Auto) 4.5 % Basophils (%) (Auto) 1.1 % Neutrophils # (Auto) 4.4 TH/MM3 Lymphocytes # (Auto) 1.4 TH/MM3 Monocytes # (Auto) 1.2 TH/MM3 Eosinophils # (Auto) 0.3 TH/MM3 Basophils # (Auto) 0.1 TH/MM3 CBC Comment DIFF FINAL Differential Comment Prothrombin Time 13.8 SEC Prothromb Time International 1.2 RATIO Ratio Activated Partial 31.5 SEC Thromboplast Time Sodium Level 136 MEQ/L Potassium Level 2.8 MEQ/L Chloride Level 101 MEQ/L Carbon Dioxide Level 26.3 MEQ/L Anion Gap 9 MEQ/L Blood Urea Nitrogen 5 MG/DL Creatinine 0.83 MG/DL Estimat Glomerular Filtration 72 ML/MIN Rate Random Glucose 104 MG/DL Calcium Level 7.8 MG/DL Total Bilirubin 1.9 MG/DL Aspartate Amino Transf 54 U/L (AST/SGOT) Alanine Aminotransferase 43 U/L (ALT/SGPT) Alkaline Phosphatase 119 U/L Total Protein 6.6 GM/DL Albumin 2.2 GM/DL [facility] Medical Decision Making Medical Screen Exam Complete: Yes Emergency Medical Condition: Yes Medical Record Reviewed: Yes Interpretation(s) Laboratory Tests Test 08/21/16 03:35 White Blood Count 7.5 TH/MM3 Red Blood Count 3.15 MIL/MM3 Hemoglobin 10.6 GM/DL Hematocrit 31.1 % Mean Corpuscular Volume 98.7 FL Mean Corpuscular Hemoglobin 33.7 PG Mean Corpuscular Hemoglobin 34.1 % Concent Red Cell Distribution Width 17.4 % Platelet Count 155 TH/MM3 Mean Platelet Volume 7.8 FL Neutrophils (%) (Auto) 59.6 % Lymphocytes (%) (Auto) 18.9 % Monocytes (%) (Auto) 15.9 % Eosinophils (%) (Auto) 4.5 % Basophils (%) (Auto) 1.1 % Neutrophils # (Auto) 4.4 TH/MM3 Lymphocytes # (Auto) 1.4 TH/MM3 Monocytes # (Auto) 1.2 TH/MM3 Eosinophils # (Auto) 0.3 TH/MM3 Basophils # (Auto) 0.1 TH/MM3 CBC Comment DIFF FINAL Differential Comment Prothrombin Time 13.8 SEC Prothromb Time International 1.2 RATIO Ratio Activated Partial 31.5 SEC Thromboplast Time Sodium Level 136 MEQ/L Potassium Level 2.8 MEQ/L Chloride Level 101 MEQ/L Carbon Dioxide Level 26.3 MEQ/L Anion Gap 9 MEQ/L Blood Urea Nitrogen 5 MG/DL Creatinine 0.83 MG/DL Estimat Glomerular Filtration 72 ML/MIN Rate Random Glucose 104 MG/DL Calcium Level 7.8 MG/DL Total Bilirubin 1.9 MG/DL Aspartate Amino Transf 54 U/L (AST/SGOT) Alanine Aminotransferase 43 U/L (ALT/SGPT) Alkaline Phosphatase 119 U/L Total Protein 6.6 GM/DL Albumin 2.2 GM/DL Differential Diagnosis Differential diagnosis includes ascites, anasarca, hypoalbuminemia, end-stage liver disease, cirrhosis, alcohol abuse, coagulopathy. Narrative Course IV was established, labs are drawn and sent, and the patient was placed on cardiac telemetry monitoring and continuous pulse oximetry monitoring. Bedside ultrasound was performed which reveals a large amount of ascites. Therefore, CMP, PT/INR, and platelet count were sent to lab. The patient's potassium is low at 2.8, therefore, was replaced orally. The patient will be given [place] outpatient testing performed to call for outpatient paracentesis. Patient's labs have been done and she will be provided a copy. Procedures Procedure Narrative A bedside ultrasound was performed using a curvilinear probe which reveals ascites within the abdomen. The patient tolerated the procedure without difficulty and there was no obvious complications. Diagnosis Primary Impression: Ascites Qualified Code: K70.31 - Ascites due to alcoholic cirrhosis Additional Impression: Edema Qualified Code: R60.1 - Generalized edema Patient Instructions: General Instructions Additional Instructions: Call for outpatient paracentesis. No more alcohol. Follow-up with a primary physician. Please provide a patient a copy of her labs at discharge. Med/Other Pt SpecificInfo: No Change to Meds Disposition: 01 DISCHARGE HOME Condition: Stable Nam Chao MD Aug 21, 2016 03:35
[2016-08-21 03:41] VITALS: BP 108/55; PULSE 85; RESP 18; O2SAT 100
[2016-08-21 03:47] LABS: AUTOMATED NEUTROPHIL # 4.4 TH/MM3 (1.8-7.7); BASOPHIL # 0.1 TH/MM3 (0-0.2); BASOPHIL % 1.1 % (0.0-2.0); EOSINOPHIL # 0.3 TH/MM3 (0-0.4); EOSINOPHIL % 4.5 % (0.0-4.0); HEMATOCRIT 31.1 % (35.0-46.0); HEMO FLAGS DIFF FINAL; LYMPH % 18.9 % (9.0-44.0); LYMPHOCYTE # 1.4 TH/MM3 (1.0-4.8); MEAN CELL VOLUME 98.7 FL (80.0-100.0); MEAN CORPUSCULAR HEMOGLOBIN 33.7 PG (27.0-34.0); MEAN CORPUSCULAR HGB CONC 34.1 % (32.0-36.0); MONO % 15.9 % (0.0-8.0); NEUT % 59.6 % (16.0-70.0); PLATELET COUNT 155 TH/MM3 (150-450); RED BLOOD COUNT 3.15 MIL/MM3 (4.00-5.30); RED CELL DISTRIBUTION WIDTH 17.4 % (11.6-17.2); WHITE BLOOD COUNT 7.5 TH/MM3 (4.0-11.0)
[2016-08-21 03:58] LABS: APTT (PATIENT) 31.5 SEC (24.3-30.1); INTERNATIONAL NORMALIZED RATIO 1.2 RATIO; PROTHROMBIN TIME - PATIENT 13.8 SEC (9.8-11.6)
[2016-08-21 04:38] LABS: ALKALINE PHOSPHATASE 119 U/L (45-117); ALT (GPT) 43 U/L (10-53); ANION GAP 9 MEQ/L (5-15); AST (GOT) 54 U/L (15-37); BICARBONATE 26.3 MEQ/L (21.0-32.0); BLOOD UREA NITROGEN 5 MG/DL (7-18); CHLORIDE 101 MEQ/L (98-107); GLOMERULAR FILTRATION RATE 72 ML/MIN (>89); SODIUM (NA) 136 MEQ/L (136-145); TOTAL BILIRUBIN ADULT 1.9 MG/DL (0.2-1.0)
[2016-08-21 04:41] LABS: POTASSIUM 2.8 MEQ/L (3.5-5.1)
[2016-08-21] MEDS ORDERED: POTASSIUM CHLORIDE 25 MEQ EFFERVESCENT TAB PO ONE (05:00)
== END 2016-08-21 05:42 | disposition home or self-care (01) ==
LOC: NEPC 22:51
DX: K70.31 Alcoholic cirrhosis of liver with ascites (principal); R60.1 Generalized edema; Z72.0 Tobacco use
CPT/HCPCS: 80053; 85025; 85610; 85730; 99284

== ENCOUNTER 2016-08-21 11:53 | Day surgery (SDC) | payer OTHER ==
[2016-08-21 13:48] VITALS: BP 94/63; PULSE 81; RESP 14; TEMP 98.3; O2SAT 100
[2016-08-21 15:20] VITALS: BP 104/63; PULSE 76; RESP 18; TEMP 98.7; O2SAT 99
[2016-08-21 15:35] VITALS: BP 106/52; PULSE 82; RESP 18; O2SAT 99
[2016-08-21 15:50] VITALS: BP 104/79; PULSE 80; RESP 20; O2SAT 99
--- NOTE | 2016-08-21 16:12 | RADRPT ---
EXAM DATE/TIME: 08/21/2016 13:57 [facility] COMPARISON: No previous studies available for comparison. INDICATIONS : Ascites MEDICAL HISTORY : Cirrhosis. Heart murmur. Skin lupus. ETOH abuse. SURGICAL HISTORY : section. Cataract repair. Right hand surgery. ENCOUNTER: Initial ACUITY: 1 day PAIN SCORE: 10/10 LOCATION: Right lower quadrant FLUID: Total volume of 3200 cc of clear, yellow fluid was removed. Fluid was discarded. Paracentesis was therapeutic only. Post procedure scanning reveals no hematoma or other complication. TECHNIQUE: 1. Ultrasound guidance for abdominal paracentesis. 2. Paracentesis. The risks, benefits, and alternatives to ultrasound guided paracentesis were explained to the patient in detail including the risk of bleeding and infection. Written and verbal informed consent was obt ained. With the patient on the ultrasound table, ultrasound imaging was used to select the most appropriate approach for paracentesis. Overlying skin was prepped and draped in the usual sterile fashion and wi th a local anesthetic, a dermatotomy was made with an 11 blade scalpel. A 6 [place] [id number] ca theter was introduced into the peritoneal cavity and fluid was collected. The patient tolerated the procedure well and left the ultrasound suite in stable condition. CONCLUSION: Uncomplicated ultrasound guided paracentesis. Santi Ruelas MD on August 21, 2016 at 16:10 Board Certified Radiologist. This report was verified electronically.
== END 2016-08-21 16:05 | disposition home or self-care (01) ==
LOC: HRAD 11:53 → HRIP 11:57 → HRAD 16:05
PROVIDERS: ATTEND Emergency Medicine
DX: R18.8 Other ascites (principal); M32.9 Systemic lupus erythematosus, unspecified
CPT/HCPCS: 49083; C1729